=== PATIENT | female | born 1965 | race Caucasian/White ===

== ENCOUNTER → 2017-12-14 15:59 | Outpatient (CLI) | payer MEDICARE, SELFPAY ==
[2017-12-14 16:20] LABS: Abs Immature Grans 0.02 k/cumm (0.0-0.09); HCT 42.8 % (36.0-46.0); Mean Corp. HGB Concentration 32.7 g/dL (32.0-36.0); Mean Corpuscular Hemoglobin 24.7 pg (27.0-33.0); Mean Corpuscular Volume 75.5 fL (80-95); Mean Platelet Volume 9.7 fL (8.0-11.0); Platelet Count 466 x1000/uL (130-400); RBC 5.67 m/cumm (4.00-5.20); RBC Distribution Width 15.1 % (11.7-14.6); White Blood Cell Count 7.26 k/cumm (4.4-10.8)
[2017-12-14 16:50] LABS: Absolute Lymphocyte Count 1.82 k/cumm (1.2-3.4); Absolute Monocyte Count 0.58 k/cumm (0.11-0.7); Absolute Neutrophil Count 4.86 k/cumm (1.2-6.7); Atypical Lymphocytes % 3
[2017-12-14 16:51] LABS: Diff Comment Manual Differential; RBC Morphology Normal
[2017-12-14 17:30] LABS: ALT 20 U/L (12-78); AST 21 U/L (15-37); Albumin 3.3 g/dL (3.4-5.0); Alkaline Phosphatase 110 U/L (46-116); BUN 22 mg/dL (7-18); Bilirubin, Total 0.5 mg/dL (0.2-1.0); CREATININE 1.18 mg/dL (0.55-1.02); Chloride 101 mmol/L (98-107); Estimated GFR 48.29 (mL/min/1.73m2); Glucose 94 mg/dL (70-100); Potassium 4.2 mmol/L (3.5-5.1); Sodium 138 mmol/L (136-145); TSH (W/Ref FT4) 1.86 uIU/mL (0.358-3.74); Total Protein 7.8 g/dL (6.4-8.2)
== END ==
PROVIDERS: PCP Nurse Practitioner Family; Visit Provider Nurse Practitioner Family
DX: R06.02 Shortness of breath (principal); R53.83 Other fatigue
CPT/HCPCS: 36415; 80053; 84443; 85025

== ENCOUNTER → 2017-12-20 00:46 | Outpatient (CLI) | payer MEDICARE, SELFPAY ==
--- NOTE | 2017-12-20 08:20 | DI.REPORT_ITS ---
SYMPTOMS/DIAGNOSIS: SHORTNESS OF BREATH, R06.02, ? CARDIOPULMONARY PROCESS, CROHN'S DISEASE, FATIGUE, R53.83 PA AND LATERAL CHEST: There is a marked biconvex thoracolumbar scoliosis. The heart is not enlarged. The lungs are clear. No pleural effusion seen. CONCLUSION: No evidence of acute disease.
== END ==
PROVIDERS: PCP Nurse Practitioner Family; Visit Provider Nurse Practitioner Family
DX: R06.02 Shortness of breath (principal); R53.83 Other fatigue; K50.90 Crohn's disease, unspecified, without complications
CPT/HCPCS: 71046

== ENCOUNTER 2018-01-18 19:29 | Inpatient (IN) | payer MEDICARE, SELFPAY ==
[2018-01-18 19:34] VITALS: BP 143/87; PULSE 91; RESP 16; TEMP 36.6; O2SAT 97
--- NOTE | 2018-01-18 19:43 | DI.CT_ITS ---
SYMPTOM/DIAGNOSIS: ABD PAIN, VOMITING, H/O CROHNS DISEASE ABDOMEN AND PELVIC CT: CT scan of the abdomen and pelvis was performed following oral and intravenous contrast material. Comparison is made with 12/11/15. The visualized lung bases are clear. The liver is normal in size. No evidence of a hepatic mass. There is mild intrahepatic biliary ductal dilatation. There are stones seen within the gallbladder. The portal and superior mesenteric veins are patent. The pancreas, spleen, adrenal glands, kidneys and urinary bladder are unremarkable. The abdominal aorta is of normal caliber. No aneurysmal dilatation is seen. No significant abdominal or pelvic ascites or pneumoperitoneum is present. There are borderline enlarged lymph nodes seen in the mesentery. The patient is status post colectomy. There is an ostomy in the left lower quadrant. There appears to be a small bowel obstruction with a transition point seen in the right lower quadrant. There does appear to be mild thickening of the wall of the small bowel at the transition point. No mass is appreciated. There is a trace amount of free fluid in the pelvis. There is a marked right convex thoracolumbar scoliosis. No acute fracture is seen. IMPRESSION: Findings consistent with a small bowel obstruction with the zone of transition noted in the right lower quadrant.
--- NOTE | 2018-01-18 19:43 | W.ED.GENAD ---
Discharge Plan Disposition Patient Disposition: [facility] INPATIENT Condition: Poor Discharge Details Chief Complaint: Abd Prob Clinical Impression: Crohn's disease, SBO (small bowel obstruction) Primary Care Provider: Nyasia Amaral ED Provider: Kelvin Mccall [place] Meds and New Rx's Prescriptions: No Action cyanocobalamin (vitamin B-12) 1,000 MCG/1 ML solution 1,000 mcg IJ ONCE Qty: 1 RF: 12 betamethasone valerate 60 ML lotion 1 applic Topical BID RF: 0 calcium carbonate-vitamin D3 1 EACH tablet 1 ea PO RF: 0 acetaminophen 500 MG tablet 2 PO Q6H PRN Qty: 500 RF: 3 ustekinumab [Stelara] 90 MG/1 ML syringe 90 mg SQ q8W RF: 0 clobetasol 50 ML solution 1 applic Topical BID RF: 0 loratadine 10 MG tablet 10 mg PO DAILY Qty: 90 RF: 0 Medical Decision Making <Nick Guzman MD - Last Filed: 01/18/18 19:52> MDM Narrative Medical decision making narrative: 52 yo female who has a hx or crohn's and has an ostomy in place, comes in with abdominal pain shortly after she started eating lunch earlier. Developed nausea and one episode of vomit around 6pm tonight. She has rlq and mid abdominal pain on exam. given her history will obtain lab work to eval for pancreatitis, hepatitis and ct to eval for entities such as sbo vs appendicitis pt signed out to Dr. Mccall pending lab and imaging Differential Diagnosis sbo, colitis, appendicits HPI <Nick Guzman MD - Last Filed: 01/18/18 19:52> General Mode of arrival: ambulatory. Date/Time Provider Initiated Documentation: 01/18/18 19:41. Limitations to Documentation: no limitations. Information obtained by: patient. History of Present Illness 52 year old F presents to the emergency department with the chief complaint of abdominal pain, described as moderate, with intensity rated at 5. Quality is described as stabbing and aching, and is localized to the abdomen. Patient reports no radiation. Patient started experiencing this hour(s) (8) and it has been other (worsening). No relieving factors improve symptom(s), No exacerbating factors reported . Patient notes nausea/vomiting. Patient did receive the following treatments prior to arrival, none Related Data Home Medications Medication Instructions Recorded Confirmed cyanocobalamin (vitamin B-12) 1,000 mcg IJ ONCE #1 vial 08/16/12 01/18/18 acetaminophen 2 PO Q6H PRN #500 tab 03/07/16 betamethasone valerate 1 applic TOPICAL BID script 03/07/16 calcium carbonate-vitamin D3 1 ea PO 03/07/16 ustekinumab [Stelara] 90 mg SQ q8W 06/10/16 01/18/18 clobetasol 1 applic TOPICAL BID script 08/05/16 01/18/18 Previous Rx's Medication Instructions Recorded loratadine 10 mg PO DAILY #90 tab-cap 12/27/17 Allergies Allergy/AdvReac Type Severity Reaction Status Date / Time Sulfa (Sulfonamide Allergy Mild MOUTH SORES Unverified 01/18/18 19:38 Antibiotics) vancomycin AdvReac Mild Unverified 01/18/18 19:38 General Stated Complaint: Abd Prob JOSE: 3 Review of Systems <Nick Guzman MD - Last Filed: 01/18/18 19:52> Review of Systems All systems reviewed & are unremarkable except as noted in HPI and below Constitutional Denies chills, Denies fever(s) and Denies weakness Eyes Patient Denies loss of vision ENT Denies change in voice Cardiovascular Denies chest pain and Denies dyspnea Respiratory Denies dyspnea Gastrointestinal Reports abdominal pain and Reports vomiting Genitourinary Denies dysuria Musculoskeletal Denies joint swelling Integumentary/Breasts Denies rash Neurologic Denies loss of vision and Denies weakness Psychiatric Denies depression Endocrine Denies cold intolerance and Denies heat intolerance Allergic/Immunologic Reports urticaria Exam <Nick Guzman MD - Last Filed: 01/18/18 19:52> Const General: no acute distress Orientation: alert [facility] Head: normal to inspection Ears: external ears normal General nose exam: external nose normal Mouth: moist mucous membranes Eyes General: appearance normal, both eyes and all related structures Neck Neck: normal visual inspection Resp Effort & Inspection: normal respiratory effort and able to speak in complete sentences Cardio Rate: regular rate GI Inspection: other (soft nondistended with rlq and mid abdominal tenderness, no guarding or rebound, ostomy in right sided of abdomen with brown stool in place) Skin General skin exam: no rashes or lesions noted Neuro General: alert and oriented x3 Extrem General: normal to inspection Psych Mental Status: mental status grossly normal Course <Nikc Guzman MD - Last Filed: 01/18/18 19:52> Vital Signs Temperature 36.6 C 01/18/18 19:34 Pulse 91 H 01/18/18 19:34 Respiratory Rate 16 01/18/18 19:34 Blood Pressure 143/87 H 01/18/18 19:34 Pulse Oximetry 97 01/18/18 19:34 Temperature 36.6 C 01/18/18 19:34 Pulse 91 H 01/18/18 19:34 Respiratory Rate 16 01/18/18 19:34 Blood Pressure 143/87 H 01/18/18 19:34 Pulse Oximetry 97 01/18/18 19:34 Sign Out <Nick Guzman MD - Last Filed: 01/18/18 19:52> Sign Out Data: Sign Out Comment: follow up on lab work and ct abd/pelvis results results Last updated by Nick Guzman MD at 01/18/18 19:52 Post-Handoff Eval: Patient signed out to me pending laboratory studies and CT scan. She had presented with abdominal pain, nausea, vomiting. She has a history of Crohn's status post colectomy with an ostomy in the left abdomen. Laboratory studies for the most part are unremarkable with no significant abnormalities. CT scan shows a small bowel obstruction with a transition point in the right lower quadrant. Patient has had multiple episodes of emesis. She has received Zofran and Phenergan. At this point emesis seems to be under control but given her bowel obstruction and the multiple episodes of vomiting I am going to place an NG tube which she is aware of. Patient will be kept n.p.o. She has switched over to D5 LR. Case is discussed with surgery, Dr. Jesus. Patient will be admitted to the surgical service for further management.
--- NOTE | 2018-01-18 19:52 | ED.GENADUL_ITS ---
Discharge Plan Disposition Patient Disposition: [facility] INPATIENT Condition: Poor Discharge Details Chief Complaint: Abd Prob Clinical Impression: Crohn's disease, SBO (small bowel obstruction) Primary Care Provider: Nyasia Amaral ED Provider: Kelvin Mccall [place] Meds and New Rx's Prescriptions: No Action cyanocobalamin (vitamin B-12) 1,000 MCG/1 ML solution 1,000 mcg IJ ONCE Qty: 1 RF: 12 betamethasone valerate 60 ML lotion 1 applic Topical BID RF: 0 calcium carbonate-vitamin D3 1 EACH tablet 1 ea PO RF: 0 acetaminophen 500 MG tablet 2 PO Q6H PRN Qty: 500 RF: 3 ustekinumab [Stelara] 90 MG/1 ML syringe 90 mg SQ q8W RF: 0 clobetasol 50 ML solution 1 applic Topical BID RF: 0 loratadine 10 MG tablet 10 mg PO DAILY Qty: 90 RF: 0 Medical Decision Making <Nick Guzman MD - Last Filed: 01/18/18 19:52> MDM Narrative Medical decision making narrative: 52 yo female who has a hx or crohn's and has an ostomy in place, comes in with abdominal pain shortly after she started eating lunch earlier. Developed nausea and one episode of vomit around 6pm tonight. She has rlq and mid abdominal pain on exam. given her history will obtain lab work to eval for pancreatitis, hepatitis and ct to eval for entities such as sbo vs appendicitis pt signed out to Dr. Mccall pending lab and imaging Differential Diagnosis sbo, colitis, appendicits HPI <Nick Guzman MD - Last Filed: 01/18/18 19:52> General Mode of arrival: ambulatory . Date/Time Provider Initiated Documentation: 01/18/18 19:41 . Limitations to Documentation: no limitations . Information obtained by: patient . History of Present Illness 52 year old F presents to the emergency department with the chief complaint of abdominal pain, described as moderate, with intensity rated at 5. Quality is described as stabbing and aching, and is localized to the abdomen. Patient reports no radiation. Patient started experiencing this hour(s) (8) and it has been other (worsening). No relieving factors improve symptom(s), No exacerbating factors reported . Patient notes nausea/vomiting. Patient did receive the following treatments prior to arrival, none Related Data Home Medications Medication Instructions Recorded Confirmed cyanocobalamin (vitamin B-12) 1,000 mcg IJ ONCE #1 vial 08/16/12 01/18/18 acetaminophen 2 PO Q6H PRN #500 tab 03/07/16 betamethasone valerate 1 applic TOPICAL BID script 03/07/16 calcium carbonate-vitamin D3 1 ea PO 03/07/16 ustekinumab [Stelara] 90 mg SQ q8W 06/10/16 01/18/18 clobetasol 1 applic TOPICAL BID script 08/05/16 01/18/18 Previous Rx's Medication Instructions Recorded loratadine 10 mg PO DAILY #90 tab-cap 12/27/17 Allergies Allergy/AdvReac Type Severity Reaction Status Date / Time Sulfa (Sulfonamide Allergy Mild MOUTH SORES Unverified 01/18/18 19:38 Antibiotics) vancomycin AdvReac Mild Unverified 01/18/18 19:38 General Stated Complaint: Abd Prob JOSE: 3 Review of Systems <Nick Guzman MD - Last Filed: 01/18/18 19:52> Review of Systems All systems reviewed & are unremarkable except as noted in HPI and below Constitutional Denies chills, Denies fever(s) and Denies weakness Eyes Patient Denies loss of vision ENT Denies change in voice Cardiovascular Denies chest pain and Denies dyspnea Respiratory Denies dyspnea Gastrointestinal Reports abdominal pain and Reports vomiting Genitourinary Denies dysuria Musculoskeletal Denies joint swelling Integumentary/Breasts Denies rash Neurologic Denies loss of vision and Denies weakness Psychiatric Denies depression Endocrine Denies cold intolerance and Denies heat intolerance Allergic/Immunologic Reports urticaria Exam <Nick Guzman MD - Last Filed: 01/18/18 19:52> Const General: no acute distress Orientation: alert [facility] Head: normal to inspection Ears: external ears normal General nose exam: external nose normal Mouth: moist mucous membranes Eyes General: appearance normal, both eyes and all related structures Neck Neck: normal visual inspection Resp Effort & Inspection: normal respiratory effort and able to speak in complete sentences Cardio Rate: regular rate GI Inspection: other (soft nondistended with rlq and mid abdominal tenderness, no guarding or rebound, ostomy in right sided of abdomen with brown stool in place) Skin General skin exam: no rashes or lesions noted Neuro General: alert and oriented x3 Extrem General: normal to inspection Psych Mental Status: mental status grossly normal Course <Nick Guzman MD - Last Filed: 01/18/18 19:52> Vital Signs Temperature 36.6 C 01/18/18 19:34 Pulse 91 H 01/18/18 19:34 Respiratory Rate 16 01/18/18 19:34 Blood Pressure 143/87 H 01/18/18 19:34 Pulse Oximetry 97 01/18/18 19:34 Temperature 36.6 C 01/18/18 19:34 Pulse 91 H 01/18/18 19:34 Respiratory Rate 16 01/18/18 19:34 Blood Pressure 143/87 H 01/18/18 19:34 Pulse Oximetry 97 01/18/18 19:34 Sign Out <Nick Guzman MD - Last Filed: 01/18/18 19:52> Sign Out Data: Sign Out Comment: follow up on lab work and ct abd/pelvis results results Last updated by Nick Guzman MD at 01/18/18 19:52 Post-Handoff Eval: Patient signed out to me pending laboratory studies and CT scan. She had presented with abdominal pain, nausea, vomiting. She has a history of Crohn's status post colectomy with an ostomy in the left abdomen. Laboratory studies for the most part are unremarkable with no significant abnormalities. CT scan shows a small bowel obstruction with a transition point in the right lower quadrant. Patient has had multiple episodes of emesis. She has received Zofran and Phenergan. At this point emesis seems to be under control but given her bowel obstruction and the multiple episodes of vomiting I am going to place an NG tube which she is aware of. Patient will be kept n.p.o. She has switched over to D5 LR. Case is discussed with surgery, Dr. Jesus. Patient will be admitted to the surgical service for further management.
[2018-01-18] MEDS: Ondansetron 4 MG/2 ML VIAL IVP (20:04)
[2018-01-18] MEDS: Normal Saline 1,000 ML 1000 ML IV (20:04)
[2018-01-18] MEDS: HYDROmorphone 2 MG/ML VIAL 1 MG IVP ×3 (20:06→23:27)
[2018-01-18 20:20] LABS: Abs Immature Grans 0.02 k/cumm (0.0-0.09); Absolute Basophil Count 0.02 k/cumm (0.0-0.2); Absolute Eosinophil Count 0.06 k/cumm (0.0-0.7); Absolute Neutrophil Count 8.65 k/cumm (1.2-6.7); Basophils % 0.2; Eosinophils % 0.6; HCT 39.2 % (36.0-46.0); HGB 12.9 g/dL (12.0-15.5); Immature Grans % 0.2; Mean Corp. HGB Concentration 32.9 g/dL (32.0-36.0); Mean Corpuscular Hemoglobin 25.3 pg (27.0-33.0); Mean Platelet Volume 9.8 fL (8.0-11.0); Platelet Count 366 x1000/uL (130-400); RBC 5.09 m/cumm (4.00-5.20); White Blood Cell Count 9.95 k/cumm (4.4-10.8)
[2018-01-18 20:33] LABS: ALT 17 U/L (12-78); AST 19 U/L (15-37); Albumin 3.1 g/dL (3.4-5.0); Alkaline Phosphatase 102 U/L (46-116); Anion Gap 11.9 mmol/L (3-11); BUN 13 mg/dL (7-18); Bilirubin, Total 0.9 mg/dL (0.2-1.0); CO2 24.1 mmol/L (21.0-32.0); CREATININE 0.98 mg/dL (0.55-1.02); Calcium 8.9 mg/dL (8.5-10.1); Chloride 102 mmol/L (98-107); Estimated GFR 59.83 (mL/min/1.73m2); Glucose 115 mg/dL (70-100); Lipase 193 U/L (73-393); Potassium 3.7 mmol/L (3.5-5.1); Sodium 138 mmol/L (136-145); Total Protein 7.5 g/dL (6.4-8.2)
[2018-01-18 20:59] VITALS: BP 112/71; PULSE 81; RESP 16; O2SAT 99
[2018-01-18] MEDS: Normal Saline Flush 10 ML SYR IVP ×2 (21:24→22:20)
[2018-01-18] MEDS: Omnipaque 350 MG/ML 100 ML BTL IJ (22:00)
--- NOTE | 2018-01-18 22:35 | DI.VRAD_ITS ---
EXAM: CT Abdomen and Pelvis With Intravenous Contrast EXAM DATE/TIME: 01/18/2018 7:45 PM CLINICAL HISTORY: 52 years old, female; Signs and symptoms; Nausea and vomiting and other: Abd pain; Patient HX: HX of crohn's disease TECHNIQUE: Axial computed tomography images of the abdomen and pelvis with intravenous contrast. All CT scans at this facility use at least one of these dose optimization techniques: automated exposure control; mA and/or kV adjustment per patient size (includes targeted exams where dose is matched to clinical indication); or iterative reconstruction. Coronal and sagittal reformatted images were created and reviewed. CONTRAST: 72 ml of OMNIPAQUE 350 administered intravenously. COMPARISON: CT ABD PELVIS WO CONTRAST 12/11/2015 2:35 PM FINDINGS: Lower thorax: No acute findings. ABDOMEN: Liver: Normal. No mass. Gallbladder and bile ducts: Mild intrahepatic biliary dilatation is present. Cholelithiasis is present with otherwise normal-appearing gallbladder. Pancreas: Normal. No ductal dilation. Spleen: Normal. No splenomegaly. Adrenals: Normal. No mass. Kidneys and ureters: Normal. No hydronephrosis. Stomach and bowel: Status post colectomy with left diverting ostomy. Small bowel loops are dilated in the abdomen and pelvis with zone of transition seen in the right lower quadrant from dilated to decompressed. PELVIS: Bladder: Unremarkable as visualized. Reproductive: Unremarkable as visualized. ABDOMEN and PELVIS: Intraperitoneal space: Normal. No free air. No significant fluid collection. Bones/joints: There is severe thoracolumbar dextroscoliosis. Soft tissues: Unremarkable. Vasculature: Normal. No abdominal aortic aneurysm. Lymph nodes: Borderline enlarged mesenteric lymph nodes are noted. IMPRESSION: Small bowel obstruction with zone of transition in the right lower quadrant. Dictated and Authenticated by: Davin De La Torre MD. Ordering:EDOUARD TRAYLOR MD
[2018-01-18 23:57] VITALS: BP 112/71; PULSE 81; RESP 16; O2SAT 99
[2018-01-19 00:03] VITALS: BP 118/72; PULSE 72; RESP 18; TEMP 36.6; O2SAT 92
[2018-01-19] MEDS: Normal Saline Flush 10 ML SYR IVP (00:41)
[2018-01-19] MEDS: DEXTROSE 5%-LACTATED RINGERS 1,000 ML 125 ML IV ×2 (00:42→08:23)
[2018-01-19 01:04] VITALS: BP 118/72; RESP 18; TEMP 36.6; O2SAT 92
[2018-01-19] MEDS: MORPHine 10 MG/ML VIAL 4 MG IV (03:02)
--- NOTE | 2018-01-19 07:45 | HPE_ITS ---
Date of service: 01/19/18 Time of Service: 06:30 Assessment and Plan (1) Small bowel obstruction due to adhesions: Current visit: Yes Status: Acute A\\Ms. Magallanes is a 52-year-old female who comes in with a small bowel obstruction. She has a known stricture close to her ostomy site. Her last endoscopy was in March. She has air and some liquid stool within the ostomy bag this morning. P\\we will clamp her NG tube today for 4 hours and check residuals if the residuals are less than 100 cc then we will remove the NG tube and start her on some sips of clears. I will discuss the case with Dr. Rider as he is the physician driver lifter of sanitation truck for the weekend. The plan was discussed with the patient and she is in agreement. History of Present Illness Narrative: Ms. Magallanes is a pleasant 52-year-old female with a history of Crohn's disease and several abdominal surgeries, who was seen in the hospital last night for abdominal pain nausea and vomiting. Patient tells me that there is a known stricture close to her ostomy. She had lunch yesterday which included some raw carrots and a couple of hours later she started to have abdominal pain nausea and eventually some vomiting. She has had small bowel obstructions in the past and knew that she most likely had another one. A CT scan was done in the emergency department which showed a small bowel obstruction with the transition zone. This morning she is feeling better her pain is almost gone and she has noted some air and liquid stool in her ostomy bag. Her NG tube is in place at this time. Review of Systems Constitutional Reports system reviewed and no additional complaints, except as docu Cardiovascular Denies chest pain, Denies chest pain at rest, Denies chest pain with activity, Denies dyspnea and Denies dyspnea on exertion Respiratory Denies cough, Denies dyspnea and Denies dyspnea on exertion Gastrointestinal Reports as per HPI Endocrine Reports system reviewed and no additional complaints, except as docu Hematologic/Lymphatic Reports system reviewed and no additional complaints, except as docu PFS Medical History Calcium oxalate renal stones Crohns disease Vitamin B deficiency Social History Smoking/Tobacco Use Status: Never Surgical History R renal percutaneous nephorstomy with stent (03/03/16) cryotherapy (09/07/16) s/p IR drainage of small abscess/ileostomy translocation small bowel resection,abscess drainage,ileostomy translocation 11/05/07 total proctocolectomy 1995 Meds Home Medications Medication Instructions Recorded Confirmed Type cyanocobalamin (vitamin B-12) 1,000 mcg IJ ONCE #1 vial 08/16/12 01/18/18 History acetaminophen 2 PO Q6H PRN #500 tab 03/07/16 History betamethasone valerate 1 applic TOPICAL BID script 03/07/16 History calcium carbonate-vitamin D3 1 ea PO 03/07/16 History ustekinumab [Stelara] 90 mg SQ q8W 06/10/16 01/18/18 History clobetasol 1 applic TOPICAL BID script 08/05/16 01/18/18 History Allergies Allergy/AdvReac Type Severity Reaction Status Date / Time Sulfa (Sulfonamide Allergy Mild MOUTH SORES Unverified 01/18/18 19:38 Antibiotics) vancomycin AdvReac Mild Unverified 01/18/18 19:38 Exam Const General: comfortable and no acute distress Resp Effort & Inspection: normal respiratory effort Auscultation: clear to auscultation bilaterally Cardio Rate: regular rate Rhythm: regular rhythm Heart Sounds: no gallops, no murmurs and no rubs GI Inspection: scar (multiple scars noted) and other (NG in place) Palpation: soft Auscultation: hypoactive bowel sounds and other (ostomy in the LLQ. Air and liquid stool noted in the ostomy bag) Results Labs : 01/18/18 20:00 01/18/18 20:00 Laboratory Results - last 24 hr 01/18/18 01/18/18 01/18/18 19:43 20:00 20:00 WBC 9.95 RBC 5.09 Hgb 12.9 Hct 39.2 MCV 77.0 L MCH 25.3 L MCHC 32.9 RDW 16.0 H Plt Count 366 MPV 9.8 Immature Gran % 0.2 Neutrophils % 87.0 Lymphocytes % 6.0 Monocytes % 6.0 Eosinophils % 0.6 Basophils % 0.2 Absolute Neutrophils 8.65 H Absolute Lymphocytes 0.60 L Absolute Monocytes 0.60 Absolute Eosinophils 0.06 Absolute Basophils 0.02 PT Cancelled INR Cancelled Sodium 138 Potassium 3.7 Chloride 102 Carbon Dioxide 24.1 Anion Gap 11.9 H BUN 13 Creatinine 0.98 Estimated GFR/1.73 m2 59.83 Glucose 115 H Calcium 8.9 Total Bilirubin 0.9 AST 19 ALT 17 Alkaline Phosphatase 102 Total Protein 7.5 Albumin 3.1 L Lipase 193
[2018-01-19 09:04] VITALS: BP 122/78; PULSE 89; RESP 18; TEMP 37.2; O2SAT 98
[2018-01-19 11:04] VITALS: BP 98/61; PULSE 86; RESP 17; TEMP 37.3; O2SAT 97
--- NOTE | 2018-01-19 11:54 | INITIAL_ITS ---
- If Service Date Differs Date of service: 01/19/18 Time of Service: 11:26 Care Management Initial Assess REASON FOR HOSPITALIZATION:: Small bowel obstruction due to adhesions PAST MEDICAL HISTORY/PAST SURGICAL HISTORY:: Calcium oxalate renal stones, Crohns disease, Vitamin B deficiency, (R) renal percutaneous nephrostomy with stent, Cryotherapy, S/P IR drainage of small abscess/ileostomy translocation, Total proctocolectomy PREVIOUS FUNCTIONAL STATUS/SOCIAL/FAMILY SUPPORTS:: Natalee resides alone in [facility], she states that she has family and friends locally whom are very supportive. 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 She states that Dr. Jesus met with her this morning and stated that she may be able to remove the NG tube. Natalee stated that if there was a chance that it would need to be reinstered she would rather have it remain in. ADVANCE DIRECTIVES:: On file - Migdalia Reveles is agent, Celine Tenorio is alternate Has patient been provided with information about the portal?: Yes Did the patient sign up for the portal?: No CODE STATUS:: Full Code INSURANCE COVERAGE / FINANCIAL ISSUES:: Medicare CURRENT HOME/COMMUNITY SERVICES/EQUIPMENT:: Currently Natalee has no services or medical equipment in the community. PRIMARY CARE PHYSICIAN:: Nyasia Amaral POTENTIAL DISCHARGE NEEDS:: F/U appointment with PCP PATIENT/FAMILY EDUCATION NEEDS:: Review DC instructions, any limitations, and ongoing DC planning discussion. review Ask Me Three ANTICIPATED BARRIERS TO DISCHARGE:: None identified at this time. TRANSPORTATION:: Via private vehicle with friend/family PLAN:: Natalee will return home with no anticipated services. She will F/U with PCP and plan of care as prescribed. Natalee will transport home via private vehicle.
--- NOTE | 2018-01-19 13:53 | PHARADMIT ---
Admission Pharmacy Clinical Review SMALL BOWEL OBSTRUCTION, CROHNS DISEASE Code Status Full Code Current Weight 56.699 kg Renally Cleared and Narrow Therapeutic Index Meds CRCL ~61ML/MIN QTc Value / Action Taken BP Control, Fever 98/61 AFEBRILE Electrolytes reviewed OK DVT Prophylaxis NO Opiate Usage / Scheduled Bowel Regimen Ordered NO/NO Plt/SCr for Heparin / Enoxaparin 366/0.98 INR for Warfarin NA H/H stable, WBC/Bands 12.9/39.2 WBC 9.95 Antibiotic appropriateness NA Cultures and Sensitivities NA Surgical ABX d/c within 24 hr NA DM control / Insulin Dosing NA Heart Failure (Check EF%) (AUBREE's, B-Block, Diuretics) NA IV to PO Switch NPO Home Meds Reviewed Home Meds Not Ordered cyanocobalamin (vitamin B-12) 1,000 mcg IJ ONCE #1 vial 08/16/12 acetaminophen 2 PO Q6H PRN #500 tab 03/07/16 [History] betamethasone valerate 1 applic TOPICAL BID script 03/07/16 [History] calcium carbonate-vitamin D3 1 ea PO 03/07/16 [History] ustekinumab [Stelara] 90 mg SQ q8W 06/10/16 [History Confirmed 01/18/18] clobetasol 1 applic TOPICAL BID script 08/05/16 [History Confirmed 01/18/18] loratadine 10 mg PO DAILY #90 tab-cap 12/27/17 [Rx Confirmed 01/18/18] Comments
--- NOTE | 2018-01-19 15:01 | PDOC.CMDIS ---
- If Service Date Differs Date of service: 01/19/18 Time of Service: 15:01 LACE Index Scoring Tool - Questions: Length of Stay (in days): 2 Acuity (Admit via E.D.?): Yes E.D. Visits: 1 - Answers: Total Score: 6 Risk of Readmission: Low Risk Care Management Discharge Reason for Hospitalization: Small bowel obstruction due to adhesions Discharge Plan: Natalee will return home today with no anticipated services. She will F/U with PCP and plan of care as prescribed. Natalee's family will transport home. Patient/Family Education Needs: Review DC instructions, any limitations, and discuss Ask Me Three
--- NOTE | 2018-01-19 15:59 | W.PM.DS.N ---
Date of service: 01/19/18 Time of Service: 15:59 DS: Diagnosis Discharge Diagnosis (1) Small bowel obstruction due to adhesions: Status: Acute Discharge Plan Disposition Patient Disposition: HOME Condition: Improving Discharge Details Reason For Visit: SMALL BOWEL OBSTRUCTION, CROHN'S DISEASE Admit Date/Time: 01/18/18 23:05 Admit Provider: Mari Jesus Attending Provider: Mari Jesus Primary Care Provider: [facility] Hospital Course: Procedures: [None] HPI: Ms. Magallanes is a pleasant 52-year-old female with a history of Crohn's disease and several abdominal surgeries, who was seen in the hospital last night for abdominal pain nausea and vomiting. Patient tells me that there is a known stricture close to her ostomy. She had lunch yesterday which included some raw carrots and a couple of hours later she started to have abdominal pain nausea and eventually some vomiting. She has had small bowel obstructions in the past and knew that she most likely had another one. A CT scan was done in the emergency department which showed a small bowel obstruction with the transition zone. This morning she is feeling better her pain is almost gone and she has noted some air and liquid stool in her ostomy bag. Her NG tube is in place at this time. Hospital Course: 52-year-old female who was admitted for small bowel obstruction with a history of Crohn's disease. She had a subtotal colectomy in the past for which she has a ileostomy. She had an NG tube placed at admission, and her NG tube was clamped this morning. It was removed when the check of the residual showed a scant amount of fluid in her stomach. Her diet was then advanced from clear liquids to digestive soft as tolerated. Once she was tolerating a digestive soft diet; she was discharged home. Time of discharge she denied any pain, she was afebrile, her ostomy was functioning again with gas and stool in the bag, and she was ambulating without difficulty. Home Meds and New Rx's Prescriptions: Continue cyanocobalamin (vitamin B-12) 1,000 MCG/1 ML solution 1,000 mcg IJ ONCE Qty: 1 RF: 12 betamethasone valerate 60 ML lotion 1 applic Topical BID RF: 0 calcium carbonate-vitamin D3 1 EACH tablet 1 ea PO RF: 0 acetaminophen 500 MG tablet 2 PO Q6H PRN Qty: 500 RF: 3 ustekinumab [Stelara] 90 MG/1 ML syringe 90 mg SQ q8W RF: 0 clobetasol 50 ML solution 1 applic Topical BID RF: 0 loratadine 10 MG tablet 10 mg PO DAILY Qty: 90 RF: 0 Discharge Instructions Instructions: Bowel Obstruction (DC) Care Plan Goals: Home Stand Alone Forms: Nursing Discharge Form Referrals: Nyasia Amraal NP [Primary Care Provider] - (Follow up as needed) Mari Jesus MD [ [facility] STAFF PHYSICIAN] - (Follow up as needed) Activity:: Activity as Tolerated Equipment/Supplies:: No Equipment Needed Discharge Orders Discharge Orders: Discharge Order (Routine); Ordered 01/19/18 Ordered By: Medardo Little DS: Summary Status at Discharge Functional status at discharge: independent ambulation Overall status at discharge: patient is back to baseline Time Spent with Patient Less than 30 minutes Exam Const General: cooperative, comfortable and no acute distress Nutritional Appearance: average body habitus and well nourished Orientation: alert, awake and oriented x3 Resp Effort & Inspection: normal respiratory effort, able to speak in complete sentences, no audible wheezes and not labored Cardio Jugular venous pressure: no JVD Rate: regular rate Rhythm: regular rhythm GI Inspection: normal to inspection, non-distended and other (Gas and stool present in her left lower quadrant ileostomy bag) Palpation: soft, no guarding and nontender Skin General skin exam: no rashes or lesions noted and turgor normal Neuro General: alert, awake, oriented x3, moves all extremities, no focal motor deficits and CN's II-XI intact bilaterally Psych Appearance: well kempt Mental Status: mental status grossly normal Affect: normal affect Judgment: judgment good DS: Data Vitals/I&O Vitals and I&O: Vital Signs Temp 37.3 C 01/19/18 11:04 Pulse 86 01/19/18 11:04 Resp 17 01/19/18 11:04 BP 98/61 L 01/19/18 11:04 Pulse Ox 97 01/19/18 11:04 Intake & Output 01/18/18 01/19/18 01/19/18 18:59 06:59 18:59 Intake Total 1000 / 1000 2093.750 / 2093.750 Output Total 150 / 150 559 / 559 Balance 850 / 850 1534.750 / 1534.750 Weight 56.699 kg Intake: IV 1000 / 1000 1643.750 / 1643.750 Oral 450 / 450 Output: Gastric Drainage 0 / 0 9 / 9 Left Nare 0 / 0 9 / 9 Urine 100 / 100 550 / 550 Stool 50 / 50 Other: Urine Color Yellow Yellow Urine Appearance Clear Cloudy Stool Size Large Stool Characteristics Liquid Liquid Mucoid Brown Voiding Methods Toilet Labs on day of discharge: Labs from last 24 hours 01/18/18 01/18/18 01/18/18 20:00 20:00 19:43 WBC 9.95 RBC 5.09 Hgb 12.9 Hct 39.2 MCV 77.0 L MCH 25.3 L MCHC 32.9 RDW 16.0 H Plt Count 366 MPV 9.8 Immature Gran % 0.2 Neutrophils % 87.0 Lymphocytes % 6.0 Monocytes % 6.0 Eosinophils % 0.6 Basophils % 0.2 Absolute Neutrophils 8.65 H Absolute Lymphocytes 0.60 L Absolute Monocytes 0.60 Absolute Eosinophils 0.06 Absolute Basophils 0.02 PT Cancelled INR Cancelled Sodium 138 Potassium 3.7 Chloride 102 Carbon Dioxide 24.1 Anion Gap 11.9 H BUN 13 Creatinine 0.98 Estimated GFR/1.73 m2 59.83 Glucose 115 H Calcium 8.9 Total Bilirubin 0.9 AST 19 ALT 17 Alkaline Phosphatase 102 Total Protein 7.5 Albumin 3.1 L Lipase 193
[2018-01-19 16:33] VITALS: BP 100/61; PULSE 75; RESP 18; TEMP 37.1; O2SAT 98
== END 2018-01-19 17:04 | disposition home or self-care (01) | DRG 389 ==
LOC: ER 23:34 → MS 01-19 08:24
PROVIDERS: Emergency Medicine; Admitting Provider Surgery; Emergency Provider Emergency Medicine; PCP Nurse Practitioner Family; Visit Provider Surgery
DX: K56.50 Intestinal adhesions [bands], unspecified as to partial versus complete obstruction (principal); K50.90 Crohn's disease, unspecified, without complications; Z93.3 Colostomy status
CPT/HCPCS: 36415; 80053; 81025; 83690; 96361; 96365; 96375; 96376; 99217; 99222; 99236; 99285; 74177; 85025; 85610; J2270; J2405; J3490

== ENCOUNTER 2018-01-24 02:52 | Outpatient (CLI) | payer MEDICARE, SELFPAY ==
[2018-01-24] MEDS: Albuterol HFA 18 GM 200 PUFF INH IH (10:41)
[2018-01-24] MEDS: Inhaler, Assist Device 1 EACH MC (10:41)
--- NOTE | 2018-01-26 15:19 | PFT_ITS ---
DATE OF DICTATION: January 26, 2018 DATE OF SURGERY: January 24, 2018 REQUESTING PROVIDER: Nyasia Amaral N.P. Spirometry shows borderline mild obstructive airways disease with no significant bronchodilator response. It is noteworthy that for both pre and post bronchodilator on flow volume loop testing, there is flattened expiratory loop. This may represent intrathoracic large airway obstruction. Lung volumes show no evidence of restriction. Diffusion capacity mildly reduced even when corrected to alveolar volume. Airways resistance normal. IMPRESSION: Borderline mild obstructive airways disease. It is noteworthy on flow volume loop for both pre and post bronchodilator testing, there is flattened expiratory loop which may signal intrathoracic large airway obstruction. Therefore, clinical correlation is recommended. SEE SCANNED DOCUMENT IN THE EMR FOR DATA AND GRAPHS
== END 2018-01-24 03:12 ==
PROVIDERS: PCP Nurse Practitioner Family; Visit Provider Nurse Practitioner Family
DX: R06.02 Shortness of breath (principal); J98.8 Other specified respiratory disorders
CPT/HCPCS: 94060; 94150; 94726; 94729

== ENCOUNTER 2021-03-30 16:10 | Outpatient (REF) | payer MEDICARE, SELFPAY | END 2021-03-30 16:11 | disposition home or self-care (01) | LOC: LBN 16:10 | PROVIDERS: PCP Nurse Practitioner Family; Visit Provider Nurse Practitioner | DX: N89.8 Other specified noninflammatory disorders of vagina (principal) | CPT/HCPCS: 87480; 87510; 87660 ==

== ENCOUNTER 2021-12-02 16:02 | Outpatient (CLI) | payer MEDICARE, SELFPAY ==
[2021-12-02 16:22] LABS: Abs Immature Grans 0.02 10^3/uL (0.0-0.06); Absolute Basophil Count 0.04 10^3/uL (0.0-0.2); Absolute Eosinophil Count 0.14 10^3/uL (0.0-0.7); Absolute Lymphocyte Count 1.42 10^3/uL (1.2-3.4); Absolute Neutrophil Count 2.81 10^3/uL (1.2-6.7); Basophils % 0.8; Eosinophils % 2.9; HCT 27.8 % (36.0-46.0); HGB 7.9 g/dL (11.2-15.7); Immature Grans % 0.4; Lymphocytes % 29.4; MCH 19.2 pg (27.0-33.0); MCHC 28.4 % (32.0-36.0); MCV 68 fL (80-95); MPV 9.4 fL (8.0-11.0); Monocytes % 8.3; Neutrophils % 58.2; Platelet Count 403 10^3/uL (130-400); RBC 4.12 10^6/uL (3.93-5.22); RDW-SD 40.8 fL; WBC 4.83 10^3/uL (4.4-10.8)
[2021-12-02 16:54] LABS: Diff Comment RBC Morph Reviewed; Microcytosis 2+
[2021-12-02 16:55] LABS: Hypochromasia 1+; Poikilocytes 1+
[2021-12-02 16:59] LABS: ALT 19 U/L (14-59); AST 21 U/L (15-37); Albumin 2.9 g/dL (3.4-5.0); Alkaline Phosphatase 79 U/L (46-116); Anion Gap 9.4 mmol/L (3-11); BUN 14 mg/dL (7-18); Bilirubin, Total 0.9 mg/dL (0.2-1.0); CO2 25.6 mmol/L (21.0-32.0); Calcium 8.4 mg/dL (8.5-10.1); Chloride 105 mmol/L (98-107); Estimated GFR 57.56 (mL/min/1.73m2); Glucose 110 mg/dL (74-106); Potassium 3.6 mmol/L (3.5-5.1); Sodium 140 mmol/L (136-145); Total Protein 6.5 g/dL (6.4-8.2)
[2021-12-02 17:16] LABS: Iron 11 ug/dL (50-170); Total Iron Binding Capacity 420 ug/dL (250-450); Transferrin Sat 3 % (15-50)
[2021-12-02 17:24] LABS: C-Reactive Protein < 0.05 mg/dL (0.0-0.3)
[2021-12-02 20:11] LABS: Ferritin 5 ng/mL (8-252)
== END 2021-12-02 16:03 | disposition home or self-care (01) ==
LOC: LBO 16:05
PROVIDERS: PCP Nurse Practitioner Family; Visit Provider Nurse Practitioner Adult Health
DX: K50.918 Crohn's disease, unspecified, with other complication (principal)
CPT/HCPCS: 36415; 80053; 82728; 83540; 83550; 85025; 86140

== ENCOUNTER 2021-12-16 02:58 | Outpatient (RCR) | payer MEDICARE, SELFPAY ==
[2021-12-10 08:10] VITALS: BP 100/69; PULSE 106; RESP 16; TEMP 36.7; O2SAT 98
[2021-12-10] MEDS: FERUMOXYTOL 510 MG in Normal Saline 50 ML 134 MG IVPB (08:23)
[2021-12-10] MEDS: Normal Saline Flush 10 ML SYR IVP (08:23)
[2021-12-10 08:55] VITALS: BP 106/70; PULSE 91; RESP 16; TEMP 36.1; O2SAT 98
[2021-12-10 09:25] VITALS: BP 107/68; PULSE 87; RESP 16; TEMP 36.6; O2SAT 100
[2021-12-16 13:40] VITALS: BP 137/81; PULSE 77; RESP 18; TEMP 36.6; O2SAT 99
[2021-12-16] MEDS: Normal Saline Flush 10 ML SYR IVP (13:51)
[2021-12-16] MEDS: FERUMOXYTOL 510 MG in Normal Saline 50 ML 134 MG IVPB (14:16)
[2021-12-16 15:20] VITALS: BP 127/80; PULSE 72; RESP 17; TEMP 36.7; O2SAT 100
== END 2021-12-29 23:59 | disposition home or self-care (01) ==
LOC: INF 02:58
PROVIDERS: PCP Nurse Practitioner Family; Visit Provider Family Medicine
DX: D50.9 Iron deficiency anemia, unspecified (principal)
CPT/HCPCS: 96365

== ENCOUNTER 2022-07-21 04:19 | Outpatient (CLI) | payer MEDICARE, SELFPAY ==
[2022-07-21 08:26] LABS: ESR 6 mm/hr (0-30)
[2022-07-21 08:27] LABS: Absolute Basophil Count 0.05 10^3/uL (0.0-0.2); Absolute Eosinophil Count 0.25 10^3/uL (0.0-0.7); Absolute Lymphocyte Count 1.13 10^3/uL (1.2-3.4); Absolute Monocyte Count 0.45 10^3/uL (0.1-0.8); Absolute Neutrophil Count 2.65 10^3/uL (1.2-6.7); Basophils % 1.1; Eosinophils % 5.5; HCT 36.4 % (36.0-46.0); HGB 10.7 g/dL (11.2-15.7); Lymphocytes % 24.9; MCH 21.1 pg (27.0-33.0); MCHC 29.4 % (32.0-36.0); MCV 72 fL (80-95); MPV 9.6 fL (8.0-11.0); Monocytes % 9.9; Neutrophils % 58.6; Platelet Count 361 10^3/uL (130-400); RBC 5.06 10^6/uL (3.93-5.22); RDW 14.8 % (11.7-14.6); RDW-SD 38.3 fL; WBC 4.53 10^3/uL (4.4-10.8)
[2022-07-21 09:02] LABS: Anisocytosis 1+; Diff Comment Diff Reviewed; Hypochromasia 1+; Microcytosis 2+
[2022-07-21 09:09] LABS: Vitamin D 25 Total 9.8 ng/mL (30-100)
[2022-07-21 09:17] LABS: ALT 23 U/L (14-59); AST 21 U/L (15-37); Albumin 3.4 g/dL (3.4-5.0); Alkaline Phosphatase 93 U/L (46-116); Anion Gap 9.5 mmol/L (3-11); BUN 9 mg/dL (7-18); Bilirubin, Total 1.2 mg/dL (0.2-1.0); CO2 23.5 mmol/L (21.0-32.0); CREATININE 1.1 mg/dL (0.55-1.02); Calcium 8.5 mg/dL (8.5-10.1); Chloride 104 mmol/L (98-107); Estimated GFR 58.97 (mL/min/1.73m2); Ferritin 8 ng/mL (8-252); Glucose 95 mg/dL (74-106); Potassium 4.3 mmol/L (3.5-5.1); Sodium 137 mmol/L (136-145); Total Protein 7.1 g/dL (6.4-8.2); Vitamin B12 362 pg/mL (193-986)
[2022-07-21 09:45] LABS: C-Reactive Protein < 0.05 mg/dL (0.0-0.3)
[2022-07-21 10:12] LABS: Iron 23 ug/dL (50-170); Total Iron Binding Capacity 462 ug/dL (250-450); Transferrin Sat 5 % (15-50)
[2022-07-22 16:02] LABS: ANA Interpretation Positive (Negative); ANA Titer Pattern 1:320 Homogeneous
== END 2022-07-21 04:20 | disposition home or self-care (01) ==
LOC: LBO 04:19
PROVIDERS: PCP Nurse Practitioner Family; Visit Provider Internal Medicine Rheumatology
DX: K50.919 Crohn's disease, unspecified, with unspecified complications (principal); L40.9 Psoriasis, unspecified; D50.9 Iron deficiency anemia, unspecified; Z79.899 Other long term (current) drug therapy
CPT/HCPCS: 36415; 80053; 82306; 85652; 82607; 82728; 83540; 83550; 85025; 86038; 86140

== ENCOUNTER 2022-07-25 10:45 | Outpatient (REF) | payer MEDICARE, SELFPAY ==
[2022-07-25 16:13] LABS: COVID-19 PCR Negative (Negative); Influenza A PCR Negative (Negative); Influenza B PCR Negative (Negative); RSV PCR Negative (Negative)
[2022-07-25 16:19] LABS: Source Nasopharynx
== END 2022-07-25 10:46 | disposition home or self-care (01) ==
LOC: LBN 10:45
PROVIDERS: PCP Nurse Practitioner Family; Referring Provider Nurse Practitioner; Visit Provider Nurse Practitioner
DX: J02.9 Acute pharyngitis, unspecified (principal); R50.9 Fever, unspecified; R51.9 Headache, unspecified; Z20.822 Contact with and (suspected) exposure to COVID-19
CPT/HCPCS: 87637

== ENCOUNTER 2022-07-25 13:25 | Outpatient (CLI) | payer MEDICARE, SELFPAY ==
[2022-07-27 14:14] LABS: TB Interpretation Negative (Negative)
== END 2022-07-25 13:26 | disposition home or self-care (01) ==
LOC: LBO 13:29
PROVIDERS: PCP Nurse Practitioner Family; Visit Provider Nurse Practitioner Adult Health
DX: K50.919 Crohn's disease, unspecified, with unspecified complications (principal)
CPT/HCPCS: 36415; 86480

== ENCOUNTER 2022-08-15 01:28 | Outpatient (RCR) | payer MEDICARE, SELFPAY ==
[2022-08-09] MEDS: Normal Saline Flush 10 ML SYR IVP (08:12)
[2022-08-09] MEDS: FERUMOXYTOL 510 MG in Normal Saline 50 ML 134 MG IVPB (08:12)
[2022-08-15 08:14] VITALS: BP 114/76; PULSE 84; RESP 17; TEMP 36.6; O2SAT 99
[2022-08-15] MEDS: Normal Saline Flush 10 ML SYR IVP (08:16)
[2022-08-15] MEDS: FERUMOXYTOL 510 MG in Normal Saline 50 ML 134 MG IVPB (08:16)
== END 2022-08-28 23:59 | disposition home or self-care (01) ==
LOC: INF 01:28
PROVIDERS: PCP Nurse Practitioner Family; Visit Provider Nurse Practitioner Family
DX: D50.9 Iron deficiency anemia, unspecified (principal)
CPT/HCPCS: 96365

== ENCOUNTER 2024-03-06 10:13 | Emergency (ER) | payer MEDICARE, SELFPAY ==
[2024-03-06 10:16] VITALS: BP 111/79; PULSE 82; RESP 16; TEMP 36.4; O2SAT 99
--- NOTE | 2024-03-06 10:30 | DI.CT_ITS ---
Exam(s) CT ABDOMEN PELVIS WO EXAM: CT ABDOMEN PELVIS WO CLINICAL HISTORY: left flank and LLQ pain, hx stones and crohns. TECHNIQUE: Imaging Protocol: Axial computed tomography images with coronal and sagittal reformatted images were created and reviewed. FINDINGS: ABDOMEN: Lung Bases: Normal where visualized. Liver: Normal density. No measurable mass. Gallbladder and biliary tract: There are multiple gallstones present. There is no biliary ductal dil atation. Pancreas: Normal density, no abnormal calcifications or inflammatory process. Spleen: Normal. Kidneys: Normal size, contour and axis.There is a 3 mm left UVJ stone causing mild hydronephrosis. N o masses seen. Adrenal glands: No mass is seen. Lymph nodes: Within normal limits. Abdominal Aorta: Abdominal portion non-dilated. Mild atherosclerotic calcification is present. PELVIS: Bladder:Symmetric distention, no gross wall thickening. Bowel: There again seen findings of a colectomy with a left lower quadrant ostomy. There is no evide nce of bowel obstruction or bowel wall thickening. Peritoneal cavity: No ascites, collection or mesenteric inflammatory response. No free air. Reproductive organs: Unremarkable as visualized. Bones: Within normal limits. There is a right convex thoracolumbar scoliosis. Age-appropriate degene rative changes are seen in the spine. Soft Tissues: Within normal limits. IMPRESSION: 1. 3 mm left UVJ stone causing mild hydronephrosis. 2. Findings were discussed with Dr. Newman on 03/06/2024. RADIATION DOSE DELIVERED: 275.66mGy.cm Total DLP DATA REPOSITORY: All CT scans at this facility are submitted to the National Radiology Data Registry (NRDR) Dose Index Registry (DIR) with the [employer] ([employer]). RADIATION OPTIMIZATION: All CT scans at this facility use at least one of these dose optimization te chniques: automated exposure control; mA and/or kV adjustment per patient size (includes targeted exa ms where dose is matched to clinical indication); or iterative reconstruction.
--- NOTE | 2024-03-06 10:31 | ED.GENADUL_ITS ---
Discharge Plan Disposition Patient Disposition: Home Condition: Improving Discharge Details Clinical Impression: Nephrolithiasis, UTI (urinary tract infection) Primary Care Provider: Nyasia Amaral ED Provider: Ernestina Carvajal Home Meds and New Rx's Prescriptions: New cephalexin 500 mg capsule 500 mg PO BID Qty: 14 0RF tamsulosin [Flomax] 0.4 mg capsule 0.4 mg PO DAILY Qty: 7 0RF Rx Instructions: May stop after passage of stone ketorolac 10 mg tablet 10 mg PO Q6H PRNQty: 8 0RF Rx Instructions: maximum total duration of 5 days from all oral, intranasal, or parenteral formulations Continued ibuprofen 100 mg/5 mL suspension 600 mg PO TID PRN (Reason: inflammation) Qty: 473 1RF acetaminophen 500 mg/15 mL liquid 1,000 mg PO Q8H PRN (Reason: fever or pain) Qty: 237 5RF cyanocobalamin (vitamin B-12) 1,000 mcg/mL solution 1,000 mcg IM .[id number] Qty: 1 [place] [facility] Sodium Bicarbonate 0.5 tsp PO TID Rx Instructions: 0.5 teaspoon per liter fluid adalimumab 40 mg/0.4 mL pen injector kit 40 mg subcut QWEEK Rx Instructions: 04/18/22 Increase to weekly dosing fluocinolone 0.01 % solution 1 applic topical BID PRN Rx Instructions: Apply to the Q-tip and then apply to the affected areas of the ears and scalp twice daily for up to two weeks clobetasol 0.05 % solution See Rx Instructions topical .COMPLEX Rx Instructions: Apply to scaly spots on scalp twice daily for 2 weeks then on weekends as needed topically; diclofenac sodium 1 % gel 2 g topical QID Rx Instructions: Apply 2g to each upper extremity joint up to 4x daily. Do not exceed 32g total body dose per day. [facility] [place]/17/23 Discharge Instructions Instructions: Kidney Stone, Adult ED, Urinary Tract Infection, Adult ED Additional Instructions: As we discussed, imaging shows a small kidney stone on the left side that is in your bladder and likely pass soon. Please continue to filter your urine until you see the stone. If possible, please bring this in for further testing, you may bring this to upcoming urology appointment. You have been referred to urology here. Please call number listed below to schedule follow-up appointment. They would like to see you in the next 1 to 2 weeks. Please continue to encourage hydration, your stress and lack of drinking may have precipitated you having a stone. There is concern that you also have a urinary tract infection but there is no indication to suggest that this infection has spread up to the kidneys so the stone does not need to be removed emergently today. Please take the antibiotics as prescribed. Even if symptoms improve, please take the entire course. If you develop fever/chills, inability stay hydrated, increased pain or other new/worsening symptoms please to care urgently once again. You may use the ketorolac to help with your discomfort as prescribed. This is an anti-inflammatory so please do not take any ibuprofen or Aleve when taking this medication. However, you may augment this with Tylenol. Please also take the Flomax as prescribed as this will allow for the passage of stone. You may stop this medication once you have seen the stone. If you develop any new or worsening symptoms please seek care urgently once again. Referrals: Uriah Verdin MD [ [facility] STAFF PHYSICIAN] - Nyasia Amaral NP [Primary Care Provider] - [facility] Date/Time Provider Initiated Documentation: 03/06/24 10:15 . Limitations to Documentation: no limitations . Information obtained by: patient and RN notes reviewed . History of Present Illness 59 year old F presents to the emergency department with the chief complaint of left side abdominal pain/pelvic pain, described as severe and similar to prior episodes (hx of nephrolithiasis and SBO), Quality is described as aching, and is localized to the abdomen. Patient started experiencing this hour(s) and it has been constant. No relieving factors improve symptom(s), No exacerbating factors reported . Patient notes loss of appetite and nausea/vomiting; denies chest pain, cough, diaphoresis, fever/chills, headaches, malaise, rash, shortness of breath and weakness. Patient did receive the following treatments prior to arrival, none Related Data Home Medications ?Medication ?Instructions ?Recorded ?Confirmed cyanocobalamin (vitamin B-12) 1,000 mcg IM .[id number] #1 vial 04/08/21 03/06/24 1,000 mcg/mL injection solution Sodium Bicarbonate 0.5 tsp PO TID 12/29/21 03/06/24 adalimumab 40 mg/0.4 mL 40 mg subcut QWEEK 04/27/22 03/06/24 subcutaneous pen kit fluocinolone 0.01 % topical 1 applic topical BID PRN 06/01/22 03/06/24 solution ibuprofen 100 mg/5 mL oral 600 mg (30 mL) PO TID PRN 07/29/22 03/06/24 suspension inflammation #473 mL clobetasol 0.05 % scalp solution See Rx Instructions topical 12/14/22 03/06/24 .COMPLEX diclofenac sodium 1 % topical gel 2 g topical QID 01/20/23 03/06/24 acetaminophen 500 mg/15 mL oral 1,000 mg (30 mL) PO Q8H PRN fever 08/28/23 03/06/24 liquid or pain #237 mL cephalexin 500 mg capsule 500 mg PO BID #14 caps 03/06/24 ketorolac 10 mg tablet 10 mg PO Q6H PRN #8 tabs 03/06/24 tamsulosin 0.4 mg capsule (Flomax) 0.4 mg PO DAILY #7 caps 03/06/24 Previous Rx's ?Medication ?Instructions ?Recorded ibuprofen 100 mg/5 mL oral 600 mg (30 mL) PO TID PRN 07/29/22 suspension inflammation #473 mL acetaminophen 500 mg/15 mL oral 1,000 mg (30 mL) PO Q8H PRN fever 08/28/23 liquid or pain #237 mL cephalexin 500 mg capsule 500 mg PO BID #14 caps 03/06/24 ketorolac 10 mg tablet 10 mg PO Q6H PRN #8 tabs 03/06/24 tamsulosin 0.4 mg capsule (Flomax) 0.4 mg PO DAILY #7 caps 03/06/24 Allergies Allergy/AdvReac Type Severity Reaction Status Date / Time Sulfa (Sulfonamide AdvReac Mild MOUTH SORES Verified 03/06/24 10:18 Antibiotics) vancomycin AdvReac Mild red Verified 03/06/24 10:18 neck/back and mild uticaria General Stated Complaint: Abd Prob JOSE: 3 Review of Systems Constitutional Constitutional: Reports as per HPI, Denies chills, Denies fever(s) and Denies headache(s) ENT Ears, Nose, Mouth, and Throat: Denies headache(s) Cardiovascular Cardiovascular: Reports as per HPI, Denies chest pain and Denies dyspnea Respiratory Respiratory: Reports as per HPI, Denies cough and Denies dyspnea Gastrointestinal Gastrointestinal: Reports as per HPI Musculoskeletal Musculoskeletal: Reports as per HPI and Denies back pain Integumentary/Breasts Skin/Breast: Reports as per HPI and Denies rash Neurologic Neurologic: Reports as per HPI and Denies headache(s) Exam Const General: cooperative, healthy appearing, no acute distress and well developed Nutritional Appearance: average body habitus and well nourished Orientation: alert and awake [facility] Head: normal to inspection Mouth: moist mucous membranes Resp Effort & Inspection: normal respiratory effort, able to speak in complete sentences and no respiratory distress Auscultation: clear to auscultation bilaterally, no rales, no rhonchi and no wheezes Cardio Rate: regular rate Rhythm: regular rhythm Heart Sounds: S1 normal and S2 normal GI Inspection: other (LLQ ostomy, appears healthy, soft stool output) Palpation: soft, no hepatosplenomegaly, not firm, no guarding, no masses, no pulsatile masses and tender in the LLQ; with no rebound tenderness Percussion: normal to percussion Auscultation: hypoactive bowel sounds Back/Spine/Pelvis Back: no CVA tenderness Skin General skin exam: no rashes or lesions noted Trauma: no lacerations or abrasions Neuro General: patient alert and patient awake Cognition: normal cognition Speech: speech normal Gait: normal gait Course Vital Signs Vital signs: Vital Signs Temperature 36.4 C 03/06/24 10:16 Pulse 82 03/06/24 10:16 Respiratory Rate 16 03/06/24 10:16 Blood Pressure 111/79 03/06/24 10:16 Pulse Oximetry 99 03/06/24 10:16 Temperature 36.4 C 03/06/24 10:16 Temperature Source Oral 03/06/24 10:16 Pulse 82 03/06/24 10:16 Respiratory Rate 16 03/06/24 10:16 Respiratory Effort Normal, Non-Labored 03/06/24 10:20 Blood Pressure 111/79 03/06/24 10:16 Blood Pressure Position Sitting 03/06/24 10:16 Pulse Oximetry 99 03/06/24 10:16 Oxygen Delivery Method Room Air 03/06/24 10:16 Oxygen Flow Rate 0 03/06/24 10:16 Pain Level 10 03/06/24 10:16 Medical Decision Making Patient is a pleasant 59 vania old female with past medical history significant f or Crohn's, multiple small bowel obstructions, nephrolithiasis with several previous abdominal surgeries, presenting today with chief complaint of left- sided flank/abdominal pain. She reports it has been several years since she had a Crohn's flare with her current regimen. Last that her injectable medication 1 week ago. States that she has had to miss her medications in the past and has done well despite needing to miss a dose. She states that the pain woke her around 4:00 this morning and has been severe since that time. Patient also has history of nephrolithiasis reports that this does feel somewhat similar as the pain can radiate down towards her bladder. She reports that she has been having a decreased urinary output. Has had some nausea and vomiting. Diminished output in her ostomy. No blood noted in emesis, ostomy output or urine. She denies any dysuria. She does report that she has a fullness in her vaginal canal but feels that this is radiating from the stomach. She denies any vaginal discharge, no new sexual partners and reports that she has not been sexually active in many years. Has had some chills but no fevers. She denies any chest pain, shortness of breath. No other symptoms associated with acute illness. On exam, patient appears uncomfortable. She does appear that she is well- hydrated. She is hemodynamically stable. Afebrile. She has healthy appearing ostomy with normal output, nonbloody. Abdomen is tender in the left lower quadrant but does not seem to be point tender. She also has some pain lower directly over the bladder. No CVA tenderness with percussion. Bowel sounds are slightly hypoactive. She is 2+ distal pulses. With patient's multiple surgeries, certainly consider an SBO although she does continue to have good ostomy output. She also does not seem to be tympanitic. No active vomiting. With the severity and sudden onset of her discomfort, considered nephrolithiasis as well. Will move forward first with a Noncon CT scan to evaluate for this. Can add in a CT scan with contrast if needed moving forward. Will give morphine and Zofran to help with symptoms. As the patient has had some emesis, will give 1 bag of IV fluids. Labs reviewed. No leukocytosis. Stable H&H. Creatinine is slightly elevated 1.2 but this does not appear significantly elevated from her baseline. Her T. bili is also elevated to 0.13 which also appears to be baseline for the patient CT scan reviewed by radiologist concerning for a 3 mm stone at the left UVJ which is consistent with the patient's discomfort. Waiting for UA. Patient reports that the pain has come back, she was given a dose of ketorolac and had much better pain relief with this medication over the morphine. UA concerning for possible infection with leukocyte esterase, bacteria. Will obstructing stone, will call urology to discuss. Consulted with Sylvia Trejo, she advised is she can keep down PO, drink fluids, advised abx (keflex), toradol and tamsulosin at home for possible infected stone. Based on size, recommends to try to see if this can pass. She recommends f/u in 1-2 wks in their office. Patient has also [place] [facility] [place] but would prefer to keep her care here if possible at this time. WALLACE Trejo feel that based on patient's labs, hemodynamics, lack of CVA tenderness and overall appearance, does not appear to be septic, unlikely to be bacteremic, feels that outpatient management is appropriate at this time which I agree with. I discussed this plan with the patient. She is significantly improved, much more chatty and mobile. Wondering at this time of the stone may already have passed into her bladder. Will have her continue to strain her urine. We discussed using the antibiotics. Very strict return precautions were discussed. She will call Dr. Verdin's office to schedule follow-up appointment. Will continue with ketorolac as recommended by WALLACE Morton to help with discomfort. All of her questions and concerns were addressed and she is in agreement this plan This documentation was generated using Hypereightation system, please disregard any oddities of phrase or misspellings. 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 (Acute) Both hands Tendinitis of both wrists (Acute) Nephrolithiasis (Chronic) Metatarsalgia of both feet (Acute) per [place]/11/[place] [facility] [place] Arthritis associated with inflammatory bowel disease (Acute) Per 01/27/21 [facility] [place] Primary osteoarthritis involving multiple joints (Acute) Per 01/27/21 [facility] [place] [place] High risk medication use (Acute) Per 01/27/21 [facility] [place] [place] Vitamin B deficiency (Chronic 11/05/12) 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 11/15/18 [place]oscopy [facility] [place] Baltazar) Endoscopy planned for November 2022 Calcium oxalate renal stones (Chronic) [place] [facility] [place] S/p PCNL (R) kidney 03/03/2016 [facility] S/p PCNL (R) kidney 08/2020 [facility] 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 had destruction of filaform wart with cryotherapy on central upper abdomen. 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
[2024-03-06 10:40] LABS: Abs Immature Grans 0.03 10^3/uL (0.0-0.06); Absolute Basophil Count 0.02 10^3/uL (0.0-0.2); Absolute Lymphocyte Count 0.44 10^3/uL (1.2-3.4); Absolute Monocyte Count 0.28 10^3/uL (0.1-0.8); Absolute Neutrophil Count 8.58 10^3/uL (1.2-6.7); Basophils % 0.2 %; HCT 43.4 % (36.0-46.0); HGB 14.3 g/dL (11.2-15.7); Immature Grans % 0.3 %; Lymphocytes % 4.7 %; MCH 28.7 pg (27.0-33.0); MCHC 32.9 % (32.0-36.0); MCV 87 fL (80-95); MPV 9.2 fL (8.0-11.0); Neutrophils % 91.8 %; Platelet Count 238 10^3/uL (130-400); RBC 4.98 10^6/uL (3.93-5.22); RDW 13.3 % (11.7-14.6); RDW-SD 42.7 fL; WBC 9.35 10^3/uL (4.4-10.8)
[2024-03-06] MEDS: MORPHine 10 MG/ML VIAL 4 MG IVP (10:44)
[2024-03-06] MEDS: Ondansetron 4 MG/2 ML VIAL IVP (10:45)
[2024-03-06 10:56] LABS: ALT 18 U/L (14-59); AST 19 U/L (15-37); Albumin 3.5 g/dL (3.4-5.0); Alkaline Phosphatase 89 U/L (46-116); Anion Gap 9.2 mmol/L (3-11); BUN 14 mg/dL (7-18); Bilirubin, Total 2.13 mg/dL (0.2-1.0); CO2 25.8 mmol/L (21.0-32.0); CREATININE 1.2 mg/dL (0.55-1.02); Calcium 9.1 mg/dL (8.5-10.1); Chloride 108 mmol/L (98-107); Estimated GFR 52.47 (mL/min/1.73m2); Glucose 141 mg/dL (74-106); Lipase 31 U/L (16-77); Magnesium 1.9 mg/dL (1.8-2.4); Potassium 4.5 mmol/L (3.5-5.1); Sodium 143 mmol/L (136-145); Total Protein 7.1 g/dL (6.4-8.2)
[2024-03-06] MEDS: Lactated Ringers 1,000 ML 1000 ML IV (11:18)
[2024-03-06 11:30] VITALS: O2SAT 97
[2024-03-06 11:58] VITALS: BP 140/77; PULSE 79; O2SAT 98
[2024-03-06] MEDS: Tamsulosin 0.4 MG CAPCR PO (12:38)
[2024-03-06] MEDS: Ketorolac 15 MG/ML VIAL IVP (12:38)
[2024-03-06 12:41] VITALS: BP 160/86; PULSE 75; O2SAT 99
[2024-03-06 13:42] LABS: Bilirubin Negative (Negative); Blood Trace-lysed (Negative); Clarity Clear (Clear); Glucose Negative (Negative); Ketones Negative (Negative); Leukocyte Esterase Moderate (Negative); Nitrite Negative (Negative); Specific Gravity 1.025 (1.005-1.025); Urobilinogen 0.2 mg/dL (Up to 0.2); pH 5.5 (5-8)
[2024-03-06 13:51] LABS: Bacteria Moderate HPF (Negative); C & S Indicated? Yes; Casts Negative LPF (Negative); Crystals Negative HPF (Negative); Epithelial Cells Few HPF (Negative); Mucus Trace (Negative); Other Cells Negative (Negative); RBC 0-2 HPF (0-2)
[2024-03-06 14:56] VITALS: BP 118/55; PULSE 77
== END 2024-03-06 15:53 | disposition home or self-care (01) ==
PROVIDERS: Emergency Provider Physician Assistant
DX: N13.2 Hydronephrosis with renal and ureteral calculous obstruction (principal); N39.0 Urinary tract infection, site not specified; Z93.3 Colostomy status
CPT/HCPCS: 36415; 80053; 83690; 96361; 96374; 96375; 99284; 74176; 81003; 81015; 83735; 85025; 87086; J1885; J2270; J2405

== ENCOUNTER 2024-08-28 15:34 | Outpatient (REF) | payer MEDICARE, SELFPAY | END 2024-08-28 15:35 | disposition home or self-care (01) | LOC: LBN 15:34 | PROVIDERS: Visit Provider Nurse Practitioner Family | DX: J02.9 Acute pharyngitis, unspecified (principal) | CPT/HCPCS: 87070 ==

== ENCOUNTER → 2024-11-05 08:51 | Outpatient (BNVA) | payer MEDICARE, SELFPAY | PROVIDERS: PCP Family Medicine; Referring Provider Emergency Medicine; Visit Provider Physical Therapy Assistant | DX: D48.5 Neoplasm of uncertain behavior of skin (principal) | CPT/HCPCS: 99203 ==

== ENCOUNTER 2024-11-23 00:31 | Emergency (ER) | payer MEDICARE, SELFPAY ==
[2024-11-23] VITALS (7 sets, daily range): BP systolic 113–129; BP diastolic 72–96; PULSE 70–105; RESP 18; TEMP 36.5; O2SAT 95–97
[2024-11-23 01:16] LABS: Abs Immature Grans 0.02 10^3/uL (0.0-0.06); HCT 50.0 % (36.0-46.0); HGB 16.6 g/dL (11.2-15.7); Immature Grans % 0.3 %; MCH 27.2 pg (27.0-33.0); MCHC 33.2 % (32.0-36.0); MCV 82 fL (80-95); MPV 9.8 fL (8.0-11.0); Platelet Count 309 10^3/uL (130-400); RBC 6.10 10^6/uL (3.93-5.22); RDW 14.0 % (11.7-14.6); RDW-SD 41.2 fL; WBC 6.25 10^3/uL (4.4-10.8)
[2024-11-23] MEDS: Lactated Ringers 1,000 ML 1000 ML IV ×2 (01:27→02:52)
[2024-11-23 01:33] LABS: ALT 24 U/L (14-59); AST 31 U/L (15-37); Albumin 4.1 g/dL (3.4-5.0); Alkaline Phosphatase 117 U/L (46-116); Anion Gap 15.0 mmol/L (3-11); BUN 27 mg/dL (7-18); Bilirubin, Total 2.8 mg/dL (0.2-1.0); CO2 20.0 mmol/L (21.0-32.0); Calcium 9.5 mg/dL (8.5-10.1); Chloride 99 mmol/L (98-107); Estimated GFR 52.47 (mL/min/1.73m2); Glucose 114 mg/dL (74-106); Lipase 39 U/L (<78); Potassium 4.4 mmol/L (3.5-5.1); Sodium 134 mmol/L (136-145); Total Protein 8.8 g/dL (6.4-8.2)
[2024-11-23 01:51] LABS: RBC Morphology Normal
[2024-11-23 02:17] LABS: EPI 027-NAP1-B1 PRESUMPTIVE NEGATIVE
--- NOTE | 2024-11-23 02:52 | W.ED.GENAD ---
Discharge Plan Disposition Patient Disposition: Home Condition: Good Discharge Details Clinical Impression: Acute dehydration, Diarrhea Primary Care Provider: Irving Barkley ED Provider: Jose Newman Home Meds and New Rx's Prescriptions: No Action ibuprofen 100 mg/5 mL suspension 600 mg PO TID PRN (Reason: inflammation) Qty: 473 1RF ergocalciferol (vitamin D2) 1,250 mcg (50,000 unit) capsule PO Patient Comments: TAKE ONE CAPSULE BY MOUTH THREE TIMES A WEEK fluocinonide 0.05 % gel 1 applic topical BID Qty: 15 0RF Rx Instructions: Apply to affected area on R arm, on the lesion only cyanocobalamin (vitamin B-12) 1,000 mcg/mL solution 1,000 mcg IM .[id number] Qty: 1 Patient Comments: [facility] Urology adalimumab 40 mg/0.4 mL pen injector kit 40 mg subcut QWEEK Rx Instructions: 04/18/22 Increase to weekly dosing fluocinolone 0.01 % solution 1 applic topical BID PRN Rx Instructions: Apply to the Q-tip and then apply to the affected areas of the ears and scalp twice daily for up to two weeks clobetasol 0.05 % solution See Rx Instructions topical .COMPLEX Rx Instructions: Apply to scaly spots on scalp twice daily for 2 weeks then on weekends as needed topically; acetaminophen 500 mg/15 mL liquid 1,000 mg PO Q8H PRN (Reason: fever or pain) Qty: 237 5RF Discharge Instructions Instructions: Dehydration, Adult (DC) Additional Instructions: At this time your laboratory workup has returned reassuring. Your C. difficile testing is negative. The culture results for your stool will take a couple days to come back, but you will be contacted if they return abnormal. Please take a probiotic daily, or yogurt with live culture to help improve your current gut health after this diarrhea episode. Please continue to take high-fiber bulking agents, drink plenty of fluids to stay well-hydrated, and monitor your symptoms closely. If you notice any worsening of your symptoms, or any new symptoms such as vomiting, diarrhea, fever, chills, shortness of breath, chest pain, numbness, weakness, or fainting , please return immediately to the emergency department for reevaluation. Please follow up with your primary care provider as soon as possible for reassessment and reevaluation. As always, it was a pleasure participating in your medical care today. Referrals: Irving Barkley DO [Primary Care Provider, Medicine] HPI General Date/Time Provider Initiated Documentation: 11/23/24 00:56. HPI Narrative: 59-year-old female with a past medical history of Crohn's disease, currently on Humira, ileostomy, renal insufficiency, previous ovarian cysts, presents today for evaluation of diarrhea. Patient states that for the last 4 days she has been having mild diarrhea. She denies any recent foreign travel, recent antibiotics, recent drinking out of streams or [place] or lakes. She states that she will occasionally get diarrhea with her Crohn's, but this diarrhea has been notably nonbloody. She denies any significant abdominal pain or vomiting. She has been drinking fluids for rehydration, and also trying to take pasty like foods to help bulk her stools, however despite this she still has green watery diarrhea. She presents today because she feels that she is getting dehydrated, and wants to hydrate prior to having a problem. She denies any other complaints at this time. She is taking Lomotil which she has prescribed already. Related Data Home Medications ?Medication ?Instructions ?Recorded ?Confirmed cyanocobalamin (vitamin B-12) 1,000 mcg IM .[id number] #1 vial 04/08/21 11/23/24 1,000 mcg/mL injection solution adalimumab 40 mg/0.4 mL 40 mg subcut QWEEK 04/27/22 11/23/24 subcutaneous pen kit fluocinolone 0.01 % topical 1 applic topical BID PRN 06/01/22 11/23/24 solution ibuprofen 100 mg/5 mL oral 600 mg (30 mL) PO TID PRN 07/29/22 11/23/24 suspension inflammation #473 mL clobetasol 0.05 % scalp solution See Rx Instructions topical 12/14/22 11/05/24 .COMPLEX ergocalciferol (vitamin D2) 1,250 PO 08/28/24 11/05/24 mcg (50,000 unit) capsule acetaminophen 500 mg/15 mL oral 1,000 mg (30 mL) PO Q8H PRN fever 09/03/24 11/23/24 liquid or pain #237 mL fluocinonide 0.05 % topical gel 1 applic topical BID #15 grams 09/27/24 11/23/24 Previous Rx's ?Medication ?Instructions ?Recorded ibuprofen 100 mg/5 mL oral 600 mg (30 mL) PO TID PRN 07/29/22 suspension inflammation #473 mL acetaminophen 500 mg/15 mL oral 1,000 mg (30 mL) PO Q8H PRN fever 09/03/24 liquid or pain #237 mL fluocinonide 0.05 % topical gel 1 applic topical BID #15 grams 09/27/24 Allergies Allergy/AdvReac Type Severity Reaction Status Date / Time Sulfa (Sulfonamide AdvReac Mild MOUTH SORES Verified 11/23/24 00:50 Antibiotics) vancomycin AdvReac Mild red Verified 11/23/24 00:50 neck/back and mild uticaria General Stated Complaint: Nausea/Vomit/Diar JOSE: 3 Exam Narrative Exam Narrative: 1.Const: Well-nourished, Well-developed, appearing stated age 2.Eyes: PERRL, no conjunctival injection, and symmetrical lids. 3.ENT: Atraumatic external nose and ears. Dry MM. Neck: Symmetric, trachea midline, No thyromegaly. 4.CVS: +S1/S2, Peripheral pulses 2+ and equal in all extremities. Brisk capillary refill in all extremities. 5.RESP: Unlabored respiratory effort. Clear to auscultation bilaterally. No wheezes rales or rhonchi 6.GI: Soft, Nontender/Nondistended, No hepatosplenomegaly. No guarding or rebound. Ostomy site demonstrates a pink ostomy, and some mild green diarrhea, but no blood. 7.MSK: Normocephalic/Atraumatic, Extremities w/o deformity or ttp No cyanosis or clubbing, Normal movement of all extremities 8.Skin: Warm, Dry. No rashes or lesions. 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 Sensation grossly intact, no focal neurologic deficits. 10.Psych: (AAO) x3. Appropriate mood and affect Course Vital Signs Vital signs: Vital Signs Temperature 36.5 C 11/23/24 00:47 Pulse 96 H 11/23/24 00:47 Respiratory Rate 18 11/23/24 00:47 Blood Pressure 116/96 H 11/23/24 00:47 Temperature 36.5 C 11/23/24 00:47 Pulse 74 11/23/24 02:33 Respiratory Rate 18 11/23/24 02:33 Blood Pressure 129/79 11/23/24 02:33 Blood Pressure Mean 95 11/23/24 02:33 Blood Pressure Position Sitting 11/23/24 00:47 Pulse Oximetry 96 11/23/24 02:33 Oxygen Delivery Method Room Air 11/23/24 02:33 Oxygen Flow Rate 0 11/23/24 02:33 Lab/Test Results Lab/Test Results: Laboratory Tests Range/Units 11/23/24 11/23/24 01:05 01:24 WBC (4.4-10.8) 10^3/uL 6.25 RBC (3.93-5.22) 10^6/uL 6.10 H Hgb (11.2-15.7) g/dL 16.6 H Hct (36.0-46.0) % 50.0 H MCV (80-95) fL 82 MCH (27.0-33.0) pg 27.2 MCHC (32.0-36.0) % 33.2 RDW (11.7-14.6) % 14.0 Plt Count (130-400) 10^3/uL 309 MPV (8.0-11.0) fL 9.8 Immature Gran % % 0.3 Neutrophils % % 57.2 Lymphocytes % % 27.0 Monocytes % % 11.4 Eosinophils % % 3.5 Basophils % % 0.6 Nucleated RBC % (0.0-0.3) % 0.0 Absolute Neutrophils (1.2-6.7) 10^3/uL 3.57 Absolute Lymphocytes (1.2-3.4) 10^3/uL 1.69 Absolute Monocytes (0.1-0.8) 10^3/uL 0.71 Absolute Eosinophils (0.0-0.7) 10^3/uL 0.22 Absolute Basophils (0.0-0.2) 10^3/uL 0.04 RBC Morphology Normal Sodium (136-145) mmol/L 134 L Potassium (3.5-5.1) mmol/L 4.4 Chloride (98-107) mmol/L 99 Carbon Dioxide (21.0-32.0) mmol/L 20.0 L Anion Gap (3-11) mmol/L 15.0 H BUN (7-18) mg/dL 27 H Creatinine (0.55-1.02) mg/dL 1.2 H Est GFR (CKD-EPI 2020) (mL/min/1.73m2) 52.47 Glucose (74-106) mg/dL 114 H Calcium (8.5-10.1) mg/dL 9.5 Total Bilirubin (0.2-1.0) mg/dL 2.8 H AST (15-37) U/L 31 ALT (14-59) U/L 24 Alkaline Phosphatase (46-116) U/L 117 H Total Protein (6.4-8.2) g/dL 8.8 H Albumin (3.4-5.0) g/dL 4.1 Lipase (<78) U/L 39 Stl C.difficile Tox PCR (Negative) Negative Medical Decision Making 59-year-old female with a past medical history of Crohn's disease, currently on Humira, ileostomy, renal insufficiency, previous ovarian cysts, presents today for evaluation of diarrhea. Patient states that for the last 4 days she has been having mild diarrhea. She denies any recent foreign travel, recent antibiotics, recent drinking out of streams or [place] or [place]. She states that she will occasionally get diarrhea with her Crohn's, but this diarrhea has been notably nonbloody. She denies any significant abdominal pain or vomiting. She has been drinking fluids for rehydration, and also trying to take pasty like foods to help bulk her stools, however despite this she still has green watery diarrhea. She presents today because she feels that she is getting dehydrated, and wants to hydrate prior to having a problem. She denies any other complaints at this time. She is taking Lomotil which she has prescribed already. Exam demonstrates well-appearing female, dry mucous membranes, mild tachycardia, blood pressure 116/96. Ostomy site is pink and moist. Diarrhea is green and slightly watery. No blood. With no abdominal pain or tenderness I do not see an indication for imaging at this time. No evidence to suggest significant Crohn's flare. He is taking her Lomotil already. We will rehydrate with IV fluids, check for electrolyte abnormalities, monitor closely and reassess. 3:06 AM no white count, hemoglobin high at 16.6, likely secondary to hemoconcentration. Electrolytes stable, anion gap 15, BUN 27 creatinine 1.2 suggestive of dehydration. Bilirubin is high at 2.8, however she has no right upper quadrant tenderness, and on review of prior labs she seems to have had elevated bilirubin levels in the past. Transaminases are normal. Lipase normal. C. difficile testing is negative. Will send the rest of her stool for culture. Otherwise patient looks well, she feels well, and feels much better after IV fluids. Patient will be discharged home, recommend continued Lomotil. No indication for antibiotics at this time with no bloody diarrhea fever chills or other red flag risk factors. Discussed red flags for which to return. Recommend continued bulking agents and Lomotil. I have extensively reviewed the treatment plan and discharge instructions with the patient. I have addressed all patient concerns at this time. The patient was made aware of what symptoms to monitor for that would warrant a return to the emergency department. Discussed the plan with the patient, they demonstrate verbal understanding and agreement with our assessment and plan at this time. The documentation in this chart was dictated using [employer] dictation software. Please excuse any dictation errors. 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 (Acute) Both hands Tendinitis of both wrists (Acute) Nephrolithiasis (Chronic) Metatarsalgia of both feet (Acute) per 05/11/21 [facility] note Arthritis associated with inflammatory bowel disease (Acute) Per 01/27/21 [facility] Rheumatology note Primary osteoarthritis involving multiple joints (Acute) Per 01/27/21 [facility] Rheumatology note High risk medication use (Acute) Per 01/27/21 [facility] Rheumatology note Vitamin B deficiency (Chronic 11/05/12) Psoriasis of scalp (Chronic 06/10/16) 06/10/16 ov at [facility] with Dr Julisa Marie(Dermatology), 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 Ovarian cyst, right (Chronic 09/15/15) MRI 06/2015 [facility] Idiopathic scoliosis (Chronic 11/07/12) Crohn's disease with complication (Chronic) [facility] GI Diagnosed 1988, rectovaginal fistulas Fistula repair early , seton placement S/p total proctocolectomy 1995 Arthropathy associated with Crohn's dz 11/15/18 ileoscopy [facility] (Dr Baltazar) Endoscopy planned for November 2022 Calcium oxalate renal stones (Chronic) Followed by [facility] Urology S/p PCNL (R) kidney 03/03/2016 [facility] S/p PCNL (R) kidney 08/2020 [facility] 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 had destruction of filaform wart with cryotherapy on central upper abdomen. 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
[2024-11-24 22:04] LABS: Campylobacter PCR Negative (Negative); Shiga Toxin PCR Negative (Negative); Shigella/Enteroinvasive Ecoli Negative (Negative)
== END 2024-11-23 04:31 | disposition home or self-care (01) ==
PROVIDERS: Emergency Provider Student in an Organized Health Care Education/Training Program; PCP Family Medicine
DX: E86.0 Dehydration (principal); R19.7 Diarrhea, unspecified
CPT/HCPCS: 80053; 83690; 87015; 87269; 87272; 87505; 96360; 96361; 99284; 85025

== ENCOUNTER 2024-11-24 17:14 | Observation (INO) | payer MEDICARE, SELFPAY ==
[2024-11-24] VITALS (30 sets, daily range): BP systolic 85–136; BP diastolic 54–94; PULSE 57–118; RESP 13–24; TEMP 36.6–36.7; O2SAT 93–100
[2024-11-24] MEDS: Lactated Ringers 1,000 ML 1000 ML IV ×2 (18:10→19:40)
[2024-11-24 18:16] LABS: Abs Immature Grans 0.01 10^3/uL (0.0-0.06); HCT 47.9 % (36.0-46.0); HGB 15.5 g/dL (11.2-15.7); Immature Grans % 0.1 %; MCH 26.7 pg (27.0-33.0); MCHC 32.4 % (32.0-36.0); MCV 83 fL (80-95); MPV 9.8 fL (8.0-11.0); Platelet Count 297 10^3/uL (130-400); RBC 5.80 10^6/uL (3.93-5.22); RDW 14.0 % (11.7-14.6); RDW-SD 41.8 fL; WBC 6.68 10^3/uL (4.4-10.8)
[2024-11-24 18:30] LABS: ALT 25 U/L (14-59); AST 23 U/L (15-37); Albumin 4.0 g/dL (3.4-5.0); Alkaline Phosphatase 112 U/L (46-116); Anion Gap 13.5 mmol/L (3-11); BUN 36 mg/dL (7-18); Bilirubin, Total 2.2 mg/dL (0.2-1.0); CO2 22.5 mmol/L (21.0-32.0); Calcium 9.1 mg/dL (8.5-10.1); Chloride 101 mmol/L (98-107); Estimated GFR 34.55 (mL/min/1.73m2); Glucose 113 mg/dL (74-106); Lipase 35 U/L (<78); Magnesium 2.0 mg/dL (1.8-2.4); Potassium 4.1 mmol/L (3.5-5.1); Sodium 137 mmol/L (136-145); Total Protein 8.2 g/dL (6.4-8.2)
[2024-11-24 20:32] LABS: ESR 19 mm/hr (0-30)
[2024-11-24 20:43] LABS: C-Reactive Protein < 0.50 mg/dL (<or=0.5)
--- NOTE | 2024-11-24 21:17 | W.ED.GENAD ---
Discharge Plan Discharge Details Chief Complaint: Recheck Primary Care Provider: Irving Barkley ED Provider: Sue Shelton Home Meds and New Rx's Prescriptions: No Action ibuprofen 100 mg/5 mL suspension 600 mg PO TID PRN (Reason: inflammation) Qty: 473 1RF ergocalciferol (vitamin D2) 1,250 mcg (50,000 unit) capsule PO Patient Comments: TAKE ONE CAPSULE BY MOUTH THREE TIMES A WEEK fluocinonide 0.05 % gel 1 applic topical BID Qty: 15 0RF Rx Instructions: Apply to affected area on R arm, on the lesion only cyanocobalamin (vitamin B-12) 1,000 mcg/mL solution 1,000 mcg IM .[id number] Qty: 1 [place] [facility] [place] adalimumab 40 mg/0.4 mL pen injector kit 40 mg subcut QWEEK Rx Instructions: 04/18/22 Increase to weekly dosing fluocinolone 0.01 % solution 1 applic topical BID PRN Rx Instructions: Apply to the Q-tip and then apply to the affected areas of the ears and scalp twice daily for up to two weeks clobetasol 0.05 % solution See Rx Instructions topical .COMPLEX Rx Instructions: Apply to scaly spots on scalp twice daily for 2 weeks then on weekends as needed topically; acetaminophen 500 mg/15 mL liquid 1,000 mg PO Q8H PRN (Reason: fever or pain) Qty: 237 5RF HPI General Date/Time Provider Initiated Documentation: 11/24/24 17:37. HPI Narrative: 59-year-old female with dehydration, lightheadedness, and persistent copious diarrhea. History of Crohn's colitis with ileostomy. No sick contacts or history of Giardia. Administered fluids yesterday, struggling to maintain hydration due to high output. No blood in stool, abdominal pain, fever, or chills. Related Data Home Medications ?Medication ?Instructions ?Recorded ?Confirmed cyanocobalamin (vitamin B-12) 1,000 mcg IM .[id number] #1 vial 04/08/21 11/24/24 1,000 mcg/mL injection solution adalimumab 40 mg/0.4 mL 40 mg subcut QWEEK 04/27/22 11/24/24 subcutaneous pen kit fluocinolone 0.01 % topical 1 applic topical BID PRN 06/01/22 11/24/24 solution ibuprofen 100 mg/5 mL oral 600 mg (30 mL) PO TID PRN 07/29/22 11/24/24 suspension inflammation #473 mL clobetasol 0.05 % scalp solution See Rx Instructions topical 12/14/22 11/24/24 .COMPLEX ergocalciferol (vitamin D2) 1,250 PO 08/28/24 11/05/24 mcg (50,000 unit) capsule acetaminophen 500 mg/15 mL oral 1,000 mg (30 mL) PO Q8H PRN fever 09/03/24 11/24/24 liquid or pain #237 mL fluocinonide 0.05 % topical gel 1 applic topical BID #15 grams 09/27/24 11/24/24 Previous Rx's ?Medication ?Instructions ?Recorded ibuprofen 100 mg/5 mL oral 600 mg (30 mL) PO TID PRN 07/29/22 suspension inflammation #473 mL acetaminophen 500 mg/15 mL oral 1,000 mg (30 mL) PO Q8H PRN fever 09/03/24 liquid or pain #237 mL fluocinonide 0.05 % topical gel 1 applic topical BID #15 grams 09/27/24 Allergies Allergy/AdvReac Type Severity Reaction Status Date / Time Sulfa (Sulfonamide AdvReac Mild MOUTH SORES Verified 11/24/24 17:24 Antibiotics) vancomycin AdvReac Mild red Verified 11/24/24 17:24 neck/back and mild uticaria General Stated Complaint: Recheck JOSE: 3 Exam Narrative Exam Narrative: General Appearance: Afebrile, nontoxic. Vital signs: Orthostatic BP 85/55 on arrival, now 128/65. HEENT: Within normal limits. Respiratory: Within normal limits. Gastrointestinal: Abdomen nontender, liquid stool in ostomy bag. No rebound or guarding. Skin: Warm and dry, no rash. Neurological: Normal. Course Vital Signs Vital signs: Vital Signs Temperature 36.7 C 11/24/24 17:18 Pulse 100 H 11/24/24 17:18 Respiratory Rate 18 11/24/24 17:18 Blood Pressure 85/61 L 11/24/24 17:18 Pulse Oximetry 96 11/24/24 17:18 Temperature 36.7 C 11/24/24 17:18 Temperature Source Oral 11/24/24 17:18 Pulse 100 H 11/24/24 17:18 Respiratory Rate 18 11/24/24 17:18 Blood Pressure 85/61 L 11/24/24 17:18 Blood Pressure Position Sitting 11/24/24 17:18 Pulse Oximetry 96 11/24/24 17:18 Oxygen Delivery Method Room Air 11/24/24 17:18 Oxygen Flow Rate 0 11/24/24 17:18 Pain Level 0 11/24/24 17:18 Lab/Test Results Lab/Test Results: Laboratory Tests Range/Units 11/24/24 18:05 WBC (4.4-10.8) 10^3/uL 6.68 RBC (3.93-5.22) 10^6/uL 5.80 H Hgb (11.2-15.7) g/dL 15.5 Hct (36.0-46.0) % 47.9 H MCV (80-95) fL 83 MCH (27.0-33.0) pg 26.7 L MCHC (32.0-36.0) % 32.4 RDW (11.7-14.6) % 14.0 Plt Count (130-400) 10^3/uL 297 MPV (8.0-11.0) fL 9.8 Immature Gran % % 0.1 Neutrophils % % 63.5 Lymphocytes % % 26.8 Monocytes % % 7.9 Eosinophils % % 1.3 Basophils % % 0.4 Nucleated RBC % (0.0-0.3) % 0.0 Absolute Neutrophils (1.2-6.7) 10^3/uL 4.23 Absolute Lymphocytes (1.2-3.4) 10^3/uL 1.79 Absolute Monocytes (0.1-0.8) 10^3/uL 0.53 Absolute Eosinophils (0.0-0.7) 10^3/uL 0.09 Absolute Basophils (0.0-0.2) 10^3/uL 0.03 ESR (0-30) mm/hr 19 Sodium (136-145) mmol/L 137 Potassium (3.5-5.1) mmol/L 4.1 Chloride (98-107) mmol/L 101 Carbon Dioxide (21.0-32.0) mmol/L 22.5 Anion Gap (3-11) mmol/L 13.5 H BUN (7-18) mg/dL 36 H Creatinine (0.55-1.02) mg/dL 1.7 H Est GFR (CKD-EPI 2020) (mL/min/1.73m2) 34.55 Glucose (74-106) mg/dL 113 H Calcium (8.5-10.1) mg/dL 9.1 Magnesium (1.8-2.4) mg/dL 2.0 Total Bilirubin (0.2-1.0) mg/dL 2.2 H AST (15-37) U/L 23 ALT (14-59) U/L 25 Alkaline Phosphatase (46-116) U/L 112 C-Reactive Protein (<or=0.5) mg/dL < 0.50 Total Protein (6.4-8.2) g/dL 8.2 Albumin (3.4-5.0) g/dL 4.0 Lipase (<78) U/L 35 Medical Decision Making CBC: No significant acute abnormality. CMP: BUN 39, creatinine 1.7, gap 13. Increased from yesterday's creatinine 1.2, BUN 23. Electrolytes stable. C. difficile negative. Initial Assessment: 59-year-old female with dehydration, lightheadedness, persistent diarrhea, history of Crohn's colitis with ileostomy. Differential Diagnosis: - Dehydration: Lightheadedness, persistent diarrhea, increased BUN and creatinine. Admission for further management. - Crohn's flare: Unlikely per GI specialist, no antibiotics or steroids. ED Course: - Orthostatic BP 85/55 on arrival, improved to 128/65 after fluids. - CMP: BUN 39, creatinine 1.7, gap 13. - C. difficile negative. - Discussed with hospitalist, agreed to admission. Final Assessment: Dehydration and lightheadedness, persistent diarrhea. Despite fluids and Banana bag yesterday, BUN and creatinine increased. Electrolytes stable. GI specialist does not suspect Crohn's flare. No antibiotics or steroids. Hospitalist agreed to admission. Clinical Impression: - Dehydration - Crohn's colitis with ileostomy Disposition: - Admission for further management of dehydration. MDM Components Evaluation: - Number of Differential Diagnoses or Management Options: Dehydration, Crohn's flare. - Amount and Complexity of Data Reviewed: Orthostatic BP, CMP, C. difficile test, consultation with GI specialist, discussion with hospitalist. - Risk of Complication and Morbidity or Mortality: Increased risk due to persistent diarrhea and dehydration, elevated BUN and creatinine. 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 (Acute) Both hands Tendinitis of both wrists (Acute) Nephrolithiasis (Chronic) Metatarsalgia of both feet (Acute) [place] [facility] [place] Arthritis associated with inflammatory bowel disease (Acute) Per 01/27/21 [facility] [place] Primary osteoarthritis involving multiple joints (Acute) Per 01/27/21 [facility] [place] High risk medication use (Acute) Per 01/27/21 [facility] [place] Vitamin B deficiency (Chronic 11/05/12) Psoriasis of scalp (Chronic 06/10/16) 06/10/16 [place] [facility] [place] Julisa Marie(Dermatology), 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 Ovarian cyst, right (Chronic 09/15/15) [place] 06/[place] [facility] [place] Idiopathic scoliosis (Chronic 11/07/12) Crohn's disease with complication (Chronic) [facility] [place], rectovaginal fistulas Fistula repair early , seton placement S/p total proctocolectomy 1995 Arthropathy associated with Crohn's dz 11/15/18 [place]oscopy [facility] [place] Endoscopy planned for November 2022 Calcium oxalate renal stones (Chronic) [place]ed [place] [facility] [place] S/p PCNL (R) kidney 03/03/2016 [facility] [place] PCNL (R) [place] 08/2020 [facility] [place] 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) Chrohn's related, [facility] [place] Jim[place] Medical History (Updated 11/23/24 @ 03:09 by Jose Newman DO) Small bowel obstruction due to adhesions Calcium oxalate renal stones Surgical History (Updated 09/24/21 @ 14:58 by Rosana Tony RN, RN) S/P endoscopy Ileoscopy 09/22/21 [facility] [place] 1995 small bowel resection,abscess drainage,ileostomy translocation 11/05/07 s/p IR drainage of small abscess/ileostomy translocation 10/17/07 cryotherapy (09/07/16) [place] [facility] [place] had destruction of filaform wart with cryotherapy on central upper abdomen. R renal percutaneous nephorstomy with stent (03/03/16) [facility] [place] History Maternal Grandmother Breast cancer Social History Smoking/Tobacco Use Status: Never Smoking risk assessment performed?: Yes Alcohol Intake: never Drug use: Never Substance use type: does not use Housing: house Number of Children: 0 current occupation: disabled What is your relationship status?: don't know Panel score (0-1 are the most socially isolated patients): 0 What type of physical activity do you participate in: other Details: physically active daily Seatbelt use: always 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
[2024-11-24] MEDS: Lactated Ringers 1,000 ML 250 ML IV (21:21)
--- NOTE | 2024-11-24 21:21 | W.PM.HP.N ---
Date of service: 11/24/24 Time of Service: 21:21 Assessment and Plan Assessment and plan (1) High risk medication use: Status: Acute Assessment and plan: Noted. Per the discussion with ED physician, no recommendation for steroid use at this time. (2) Crohn's disease with complication: Status: Chronic Assessment and plan: Continue with IV hydration and recheck labs in the a.m. Considering the patient's multiple episodes of diarrhea we will will order banana bag to replete any electrolyte loss. (3) Renal insufficiency: Status: Chronic Assessment and plan: As above. (4) Diarrhea: Status: Acute Assessment and plan: Exact etiology is unknown to but does not appear to be infectious. Awaiting labs but will continue with supportive care. dvtp with lovenox History of Present Illness History of Present Illness Chief Complaint: diarrhea Narrative: This is a 59-year-old female with a known history of Crohn's disease who had a ileostomy in the early as well as her revision in 1999 presents with 5 days of diarrhea. Patient has been taking antidiarrheals without success. She was actually seen yesterday in the ED and sent home. Continue to have symptoms and presented again today. On admission she was orthostatic and did have worsening renal function. I was called to evaluate the patient and recommended admission as she continued to have diarrhea and worsening renal function. Patient denies any nausea vomiting or abdominal pain. Patient denies any blood in her stool. C. difficile check yesterday was negative multiple other GI infectious causes are still pending including Salmonella and Shigella. Patient does follow-up with [facility] GI. The ED attending did reach out to [facility] who just recommended supportive care only. 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 (Acute) Both hands Tendinitis of both wrists (Acute) Nephrolithiasis (Chronic) Metatarsalgia of both feet (Acute) per [place]/11/21 [facility] [place] Arthritis associated with inflammatory bowel disease (Acute) Per 01/27/21 [facility] [place] Primary osteoarthritis involving multiple joints (Acute) Per 01/27/21 [facility] [place] High risk medication use (Acute) Per 01/27/21 [facility] [place] Vitamin B deficiency (Chronic 11/05/12) Psoriasis of scalp (Chronic 06/10/16) 06/10/16 ov [place] [facility] [place] Julisa Marie(Dermatology), 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 Ovarian cyst, right (Chronic 09/15/15) MRI 06/2015 [facility] [place] Idiopathic scoliosis (Chronic 11/07/12) Crohn's disease with complication (Chronic) [facility] [place] 1988, rectovaginal fistulas Fistula repair early , seton placement S/p total proctocolectomy 1995 Arthropathy associated with Crohn's dz 11/15/18 ileoscopy [facility] [place] Baltazar) Endoscopy planned for November 2022 Calcium oxalate renal stones (Chronic) Followed by [facility] [place] S/p PCNL (R) kidney 03/03/2016 [facility] [place]/p PCNL (R) kidney 08/2020 [facility] [place] 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 had destruction of filaform wart with cryotherapy on central upper abdomen. 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 Do you feel safe at home: Yes Meds Allergies and Home Medications Allergies Allergy/AdvReac Type Severity Reaction Status Date / Time Sulfa (Sulfonamide AdvReac Mild MOUTH SORES Verified 11/24/24 17:24 Antibiotics) vancomycin AdvReac Mild red Verified 11/24/24 17:24 neck/back and mild uticaria Home Medications ?Medication ?Instructions ?Recorded ?Confirmed ?Type cyanocobalamin (vitamin B-12) 1,000 mcg IM .[id number] #1 vial 04/08/21 11/24/24 History 1,000 mcg/mL injection solution adalimumab 40 mg/0.4 mL 40 mg subcut QWEEK 04/27/22 11/24/24 History subcutaneous pen kit fluocinolone 0.01 % topical 1 applic topical BID PRN 06/01/22 11/24/24 History solution ibuprofen 100 mg/5 mL oral 600 mg (30 mL) PO TID PRN 07/29/22 11/24/24 Rx suspension inflammation #473 mL clobetasol 0.05 % scalp solution See Rx Instructions topical 12/14/22 11/24/24 History .COMPLEX ergocalciferol (vitamin D2) 1,250 PO 08/28/24 11/05/24 History mcg (50,000 unit) capsule acetaminophen 500 mg/15 mL oral 1,000 mg (30 mL) PO Q8H PRN fever 09/03/24 11/24/24 Rx liquid or pain #237 mL fluocinonide 0.05 % topical gel 1 applic topical BID #15 grams 09/27/24 11/24/24 Rx Exam Narrative Exam Narrative: HEENT-normocephalic atraumatic mucous membranes moist Neck-no lymphadenopathy no JVD no thyromegaly Cardiovascular-regular rate rhythm no murmur rubs or gallops Lungs-clear to auscultation bilaterally with good air exchange Abdomen-soft nontender nondistended ileostomy appliance is in place. Appears clean dry and intact Extremities-no sinus clubbing or edema. Does have normal cap refill Neurologic-cranial nerves II through XII intact as tested reflexes upper extremity normal as tested Psych-alert and oriented x 3 no apparent distress Results Labs 11/24/24 18:05 11/24/24 18:05 Labs: Laboratory Results - last 24 hr 11/24/24 18:05 WBC 6.68 RBC 5.80 H Hgb 15.5 Hct 47.9 H MCV 83 MCH 26.7 L MCHC 32.4 RDW 14.0 Plt Count 297 MPV 9.8 Immature Gran % 0.1 Neutrophils % 63.5 Lymphocytes % 26.8 Monocytes % 7.9 Eosinophils % 1.3 Basophils % 0.4 Nucleated RBC % 0.0 Absolute Neutrophils 4.23 Absolute Lymphocytes 1.79 Absolute Monocytes 0.53 Absolute Eosinophils 0.09 Absolute Basophils 0.03 ESR 19 Sodium 137 Potassium 4.1 Chloride 101 Carbon Dioxide 22.5 Anion Gap 13.5 H BUN 36 H Creatinine 1.7 H Est GFR (CKD-EPI 2020) 34.55 Glucose 113 H Calcium 9.1 Magnesium 2.0 Total Bilirubin 2.2 H AST 23 ALT 25 Alkaline Phosphatase 112 C-Reactive Protein < 0.50 Total Protein 8.2 Albumin 4.0 Lipase 35 Last Vital Signs Temp 36.7 C 11/24/24 17:18 Pulse 76 11/24/24 21:18 Resp 21 11/24/24 19:30 BP 119/92 H 11/24/24 21:18 Pulse Ox 98 11/24/24 21:18 Time Spent Time spent with Patient: <40 minutes Time was spent: preparing to see the patient(eg.review tests), obtaining and/or reviewing separately otained hiistory, ordering medications,tests, procedures, referring, communicating with other health director career services, indepentently interpreting results, counseling the patient and care coordination
--- NOTE | 2024-11-24 21:50 | W.PC.ACHO ---
Registration Status: REG ER Primary Language: Preferred Language: Turkmen ED Information & Data Chief Complaint Recheck 11/24/24 21:19 Triage Note patient state she was here 11/24/24 17:18 yesterday due to having frequent stools, state she has a history of Crohn's and ileostomy in place. State she is still feeling dehydrated. Medical / Surgical History (Last Updated 07/15/22 @ 16:20 by Galina Boo RN) Small bowel obstruction due to adhesions Calcium oxalate renal stones (Last Updated 09/24/21 @ 14:58 by Rsoana Tony RN, RN) S/P endoscopy total proctocolectomy 1995 small bowel resection,abscess drainage,ileostomy translocation 11/05/07 s/p IR drainage of small abscess/ileostomy translocation cryotherapy (09/07/16) R renal percutaneous nephorstomy with stent (03/03/16) Most Recent Vital Signs Temperature 36.7 C 11/24/24 17:18 Temperature Source Oral 11/24/24 17:18 Pulse 76 11/24/24 21:18 Pulse 74 11/24/24 19:30 Respiratory Rate 21 11/24/24 19:30 Blood Pressure 119/92 H 11/24/24 21:18 Blood Pressure Mean 101 11/24/24 21:18 Blood Pressure Position Sitting 11/24/24 17:18 Pulse Oximetry 98 11/24/24 21:18 Oxygen Delivery Method Room Air 11/24/24 17:18 Oxygen Flow Rate 0 11/24/24 17:18 Pain Level 0 11/24/24 17:18 Allergies Sulfa (Sulfonamide Antibiotics) Adverse Reaction (Mild, Verified 11/24/24 17:24) MOUTH SORES vancomycin Adverse Reaction (Mild, Verified 11/24/24 17:24) red neck/back and mild uticaria IV IV Catheter Type [Right Saline Lock Antecubital] IV Catheter Gauge [Right 20 Antecubital] Diet Orders Category Date Time Status Regular/Normal [DIET] Nutrition 11/25/24 Breakfast Ordered Diagnostics 11/24/24 Range/Units 18:05 WBC 6.68 (4.4-10.8) 10^3/uL RBC 5.80 H (3.93-5.22) 10^6/uL Hgb 15.5 (11.2-15.7) g/dL Hct 47.9 H (36.0-46.0) % MCV 83 (80-95) fL MCH 26.7 L (27.0-33.0) pg MCHC 32.4 (32.0-36.0) % RDW 14.0 (11.7-14.6) % Plt Count 297 (130-400) 10^3/uL MPV 9.8 (8.0-11.0) fL Immature Gran % 0.1 % Neutrophils % 63.5 % Lymphocytes % 26.8 % Monocytes % 7.9 % Eosinophils % 1.3 % Basophils % 0.4 % Nucleated RBC % 0.0 (0.0-0.3) % Absolute Neutrophils 4.23 (1.2-6.7) 10^3/uL Absolute Lymphocytes 1.79 (1.2-3.4) 10^3/uL Absolute Monocytes 0.53 (0.1-0.8) 10^3/uL Absolute Eosinophils 0.09 (0.0-0.7) 10^3/uL Absolute Basophils 0.03 (0.0-0.2) 10^3/uL ESR 19 (0-30) mm/hr Sodium 137 (136-145) mmol/L Potassium 4.1 (3.5-5.1) mmol/L Chloride 101 (98-107) mmol/L Carbon Dioxide 22.5 (21.0-32.0) mmol/L Anion Gap 13.5 H (3-11) mmol/L BUN 36 H (7-18) mg/dL Creatinine 1.7 H (0.55-1.02) mg/dL Est GFR (CKD-EPI 2020) 34.55 (mL/min/1.73m2) Glucose 113 H (74-106) mg/dL Calcium 9.1 (8.5-10.1) mg/dL Magnesium 2.0 (1.8-2.4) mg/dL Total Bilirubin 2.2 H (0.2-1.0) mg/dL AST 23 (15-37) U/L ALT 25 (14-59) U/L Alkaline Phosphatase 112 (46-116) U/L C-Reactive Protein < 0.50 (<or=0.5) mg/dL Total Protein 8.2 (6.4-8.2) g/dL Albumin 4.0 (3.4-5.0) g/dL Lipase 35 (<78) U/L Intake and Output - 24 Hour Total 11/24/24 17:14 thru 11/24/24 17:18 Weight 58.967 kg Falls Risk Assessment History of Falls No History 11/24/24 18:09 Contributing Factors No Factors 11/24/24 18:09 Ambulatory Aids Independent 11/24/24 18:09 Tubes/Lines None 11/24/24 18:09 Gait Evaluation No gait disturbance 11/24/24 18:09 Cognition No cognitive impairment 11/24/24 18:09 Fall Total Score 0 11/24/24 18:09 Level of Risk Standard/Low Risk 11/24/24 18:09 Problems (Last Updated 07/15/22 @ 16:20 by Galina Boo RN) Diarrhea (Acute) Renal insufficiency (Chronic) High risk medication use (Acute) Crohn's disease with complication (Chronic) v v v v v v v v v Sending and/or Receiving Nurses: Please use comment section below to note any information pertinent to the patient hand-off not included above. Information / Comments: 59 yo F admit through the ED to med/surg rm 216, for PERLA and dehydration. Hx of crohns and ileostomy. Given 3 L LR in the ED. Normal vitals att. Report received from:Kevin CHOU, [id number]
[2024-11-24] MEDS: Enoxaparin 40 MG/0.4 ML SYR SC (23:27)
[2024-11-25] MEDS: MAGNESIUM SULFATE 8.12 MEQ, MULTIVITAMIN 10 ML, THIAMINE 100 MG, FOLIC ACID 1 MG in Nor... 168.867 MG IV (00:56)
[2024-11-25 07:36] VITALS: BP 104/68; PULSE 65; RESP 16; TEMP 36.3; O2SAT 100
[2024-11-25] MEDS: Lactated Ringers 1,000 ML 250 ML IV ×3 (07:46→13:43)
--- NOTE | 2024-11-25 09:16 | INITIAL_ITS ---
Date of service: 11/25/24 Time of Service: 09:16 Care Management Initial Assmt Initial Assessment Reason for Hospitalization: dehydration, diarrhea, orthostatic hypotension Functional Status/Living Situation Patient Presentation: Natalee presented to the ED last evening with c/o dehydration, lightheadedness and persistent copious diarrhea. She does have a history of Chron's disease. She had been in the ED the previous day with the same complaints. She was encouraged to take probiotics, f/u with her PCP, and was sent home. Today Natalee was sitting up in the bed, picking at her lunch, when CM met with her. She was very pleasant, and easy to talk with. She said that she is feeling a little better, and wishes she could go home. She knows that she is not quite ready yet, however. She is still receiving IVF at 250cc/h. Natalee lives alone, but feels well supported by her sister and nieces, and also her parents. She denied any community needs. Natalee is not working, she is disabled do to her Chron's disease. Town of Residence: [facility] Resides with: Alone Significant Other/Family: Local (sister, Migdalia, and parents Rhett and Kellie. ) Natural Supports: family Employment Status: Disabled Instrumental Activities of Daily Living (ADLs): Independent Activities/Hobbies/SocialSupport: Natalee likes to read, craft, knit and garden. Medications Medication Management: No Issues/Barriers identified Advance Directives Advance Directives: Do you have an Advance Directive: Y , 12:26 AD On File at [facility]: Y 07/27/12, 16:29 Date Asked 11/24/24 11/24/24, 17:15 AD Date Reviewed 11/24/24 Today, 08:33 COLST On File at [facility] COLST Date Scanned Code Status Resuscitation Status Full Code Insurance Coverage/Financial Issues Insurance: Medicare Part A & B Care Team Visit Care Team Role Provider Type Marcy Velez NP MD [facility] STAFF PHYSICIAN Irving Barkley DO Primary Care Provider OSTEOPATHIC DOCTOR COREEN Cooper Emergency Provider PHYSICIANS MALARIOLOGIST Kelvin Duarte MD Admit Provider [facility] STAFF PHYSICIAN Attending Provider Other: GI and dermatology at [facility] Discharge Potential Discharge Needs: PCP F/U Appt and Other (GI specialist at [facility]) Anticipated Barriers to Discharge: None Identified Patient/Family Education Needs: Review discharge instructions, discuss Ask Me Three Transportation: Private vehicle Plan: Anticipate that Natalee will discharge home with no new services. She will f/u with her PCP and her GI specialist, and continue per her plan of care. CM will continue to follow. Social Determinants of Health Screening Will the Patient Participate in the Screening?: Declined to provide PFSH All Active Problems (Updated 11/24/24 @ 21:29 by Kelvin Duarte MD) Diarrhea (Acute) Diarrhea (Acute) Acute dehydration (Acute) Atypical absence epilepsy (Acute) Pharyngitis (Acute) Menopausal and female climacteric states (Acute) 04/03/23 [employer]ICAL [employer]Y TECH[employer]IC[employer] [facility] Renal insufficiency (Chronic) Seborrheic dermatitis of scalp (Acute) Sore throat (Acute) Viral upper respiratory illness (Acute) Sinus pressure (Acute) Facial pain, acute (Acute) Iron deficiency anemia due to chronic blood loss (Acute) 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 (Acute) Both hands Tendinitis of both wrists (Acute) Nephrolithiasis (Chronic) Metatarsalgia of both feet (Acute) per 05/11/21 [facility] note Arthritis associated with inflammatory bowel disease (Acute) Per 01/27/21 [facility] Rheumatology note Primary osteoarthritis involving multiple joints (Acute) Per 01/27/21 [facility] Rheumatology note High risk medication use (Acute) Per 01/27/21 [facility] Rheumatology note Vitamin B deficiency (Chronic 11/05/12) Psoriasis of scalp (Chronic 06/10/16) 06/10/16 ov at [facility] with Dr Julisa Marie(Dermatology), 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 Ovarian cyst, right (Chronic 09/15/15) MRI 06/2015 [facility] Idiopathic scoliosis (Chronic 11/07/12) Crohn's disease with complication (Chronic) [facility] GI Diagnosed 1988, rectovaginal fistulas Fistula repair early , seton placement S/p total proctocolectomy 1995 Arthropathy associated with Crohn's dz 11/15/18 ileoscopy [facility] (Dr Baltazar) Endoscopy planned for November 2022 Calcium oxalate renal stones (Chronic) Followed by [facility] Urology S/p PCNL (R) kidney 03/03/2016 [facility] S/p PCNL (R) kidney 08/2020 [facility] 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 had destruction of filaform wart with cryotherapy on central upper abdomen. R renal percutaneous nephorstomy with stent (03/03/16) [facility] Family History Maternal Grandmother Breast cancer Social History Smoking/Tobacco Use Status: Never Smoking risk assessment performed?: Yes Alcohol Intake: never Drug use: Never Substance use type: does not use Housing: house Number of Children: 0 current occupation: disabled What is your relationship status?: don't know Panel score (0-1 are the most socially isolated patients): 0 What type of physical activity do you participate in: other Details: physically active daily Seatbelt use: always Drive intox or ride w/intox 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
[2024-11-25 11:05] VITALS: BP 115/71; PULSE 67; RESP 17; TEMP 36.4; O2SAT 99
[2024-11-25 14:31] LABS: Anion Gap 6.5 mmol/L (3-11); BUN 17 mg/dL (7-18); CO2 27.5 mmol/L (21.0-32.0); Calcium 7.9 mg/dL (8.5-10.1); Chloride 108 mmol/L (98-107); Estimated GFR 85.35 (mL/min/1.73m2); Glucose 93 mg/dL (74-106); Potassium 3.7 mmol/L (3.5-5.1); Sodium 142 mmol/L (136-145)
[2024-11-25 14:32] VITALS: BP 122/75; BP 134/82; BP 134/89; PULSE 65; PULSE 68; PULSE 74; RESP 17; TEMP 36.4; O2SAT 99
--- NOTE | 2024-11-25 14:39 | W.PM.DS.N ---
Date of service: 11/25/24 Time of Service: 14:40 DS: Diagnosis Discharge Diagnosis (1) High risk medication use: Status: Acute (2) Crohn's disease with complication: Status: Chronic (3) Renal insufficiency: Status: Chronic (4) Diarrhea: Status: Acute Discharge Plan Disposition Patient Disposition: Home Condition: Improving Discharge Details Reason For Visit: Dehydration Admit Date/Time: 11/24/24 21:16 Admit Provider: Kelvin Duarte Attending Provider: Kelvin Duarte Primary Care Provider: Irving Barkley [facility] Hospital Course: The patient is a 59-year-old female with a longstanding history of Crohn?s disease, having undergone multiple surgeries, including a total proctocolectomy and ileostomy. She presented to the emergency department with complaints of ongoing diarrhea, dehydration, and lightheadedness. The diarrhea has been persistent for 5 days and has not responded to [id number] antidiarrheal medications. ` Upon arrival, she was noted to have orthostatic hypotension, with an initial blood pressure of 85/55, which improved to 128/65 after the administration of intravenous fluids. Labs showed mild dehydration, an elevated BUN of 36, creatinine of 1.7, and an anion gap of 13. Her electrolytes remained stable, and her C. difficile test was negative. There were no signs of infection, and a review of her stool showed no blood. Given the patient's persistent symptoms and worsening renal function, a decision was made to admit her for further monitoring and management. A consultation with a GI specialist was obtained, who did not suspect an active Crohn's flare and recommended supportive care only. The patient was continued on IV hydration, with close monitoring of renal function and electrolytes. Throughout the admission, the patient remained afebrile and nontoxic, with normal neurological examination findings. There was no abdominal tenderness, and her ileostomy appliance appeared intact and clean. After receiving supportive care, including hydration, the patient?s condition improved, and she was stable for discharge. She was advised to continue her current medications, including B12 injections, adalimumab, and other maintenance therapies as per her established regimen. Follow-up with her furniture sales consultant and primary care provider is recommended. Final Diagnosis: Dehydration due to high-output ileostomy and diarrhea. Crohn?s disease, stable. Renal insufficiency, stable at discharge. Disposition: The patient is stable for discharge and will follow up with her GI specialist as planned. She was educated on signs of dehydration and instructed to monitor fluid intake and output closely. Discharge medications remain unchanged, and the patient was instructed to resume her usual medications, including ibuprofen for inflammation, vitamin D2, and fluocinonide for dermatologic concerns. Recommendations for Follow Up Recommended tests to be ordered by follow up provider: BMP in 5 days (order placed) Home Meds and New Rx's Prescriptions: No Action ibuprofen 100 mg/5 mL suspension 600 mg PO TID PRN (Reason: inflammation) Qty: 473 1RF ergocalciferol (vitamin D2) 1,250 mcg (50,000 unit) capsule PO Patient Comments: TAKE ONE CAPSULE BY MOUTH THREE TIMES A WEEK fluocinonide 0.05 % gel 1 applic topical BID Qty: 15 0RF Rx Instructions: Apply to affected area on R arm, on the lesion only cyanocobalamin (vitamin B-12) 1,000 mcg/mL solution 1,000 mcg IM .[id number] Qty: 1 Patient Comments: [facility] [place] adalimumab 40 mg/0.4 mL pen injector kit 40 mg subcut QWEEK Rx Instructions: 04/18/22 Increase to weekly dosing fluocinolone 0.01 % solution 1 applic topical BID PRN Rx Instructions: Apply to the Q-tip and then apply to the affected areas of the ears and scalp twice daily for up to two weeks clobetasol 0.05 % solution See Rx Instructions topical .COMPLEX Rx Instructions: Apply to scaly spots on scalp twice daily for 2 weeks then on weekends as needed topically; acetaminophen 500 mg/15 mL liquid 1,000 mg PO Q8H PRN (Reason: fever or pain) Qty: 237 5RF Discharge Instructions Instructions: Crohn disease in adults Additional Instructions: 1. Fluid Management: Hydration: It is essential to maintain proper hydration. Drink at least 8-10 glasses of water or electrolyte solution daily. Avoid sugary or caffeinated drinks as they can worsen dehydration. Monitor Fluid Loss: Keep track of your output and aim to drink enough fluids to compensate for any losses. Signs of Dehydration: If you notice signs of dehydration such as dry mouth, dizziness, dark urine, or infrequent urination, please increase fluid intake and contact your healthcare provider. Have your electrolytes and kidney function checked in 5 days (order placed). 2. Diet & Nutrition: Balanced Diet: Try to eat a well-balanced diet, with a focus on nutrient-dense foods that are easy to digest, such as lean proteins, well-cooked vegetables, and simple grains. Avoid Trigger Foods: Some foods can irritate your bowel, such as spicy foods, high-fat foods, or dairy. Pay attention to how your body responds to different foods and avoid those that worsen diarrhea or cause discomfort. Frequent, Small Meals: Eating smaller meals more frequently throughout the day may help with digestion and prevent overloading your system. 3. Medications: Adalimumab: Continue your prescribed medication as directed. Make sure you stay on track with your next injection and monitor for any side effects. B12 Injections: Ensure you continue with your scheduled B12 injections as directed by your doctor. Pain Relief: If you experience discomfort or mild pain, you can take [id number] pain relievers like acetaminophen (Tylenol) as needed. Continue Current Medications: Continue all other medications as prescribed before your hospitalization, unless otherwise directed. 4. Monitoring for Symptoms: Diarrhea/Loose Stools: While it?s expected to have some diarrhea given your condition, if you experience a sudden increase in stool output, blood in your stool, or severe abdominal pain, please contact your doctor right away. Renal Function: Keep an eye on your urine output, and notify your doctor if you notice changes such as reduced urination or any pain while urinating. 5. Activity & Rest: Rest: Allow yourself time to rest as your body recovers. Avoid strenuous physical activity until you feel fully recovered. Light Exercise: Once you're feeling better, you can gradually resume light activities, but avoid heavy lifting or excessive physical strain. 6. Follow-Up Care: GI Specialist: Schedule a follow-up appointment with your furniture sales consultant in the next 1-2 weeks to review your Crohn?s disease management and to monitor for any changes. Primary Care Provider: Continue to follow up with your primary care provider for routine monitoring of kidney function and overall health. Contact Information: If you experience any new or worsening symptoms, or if you have any concerns, please call your healthcare provider or visit the nearest emergency department. 7. When to Seek Immediate Medical Attention: Severe Abdominal Pain Persistent Vomiting or Inability to Keep Fluids Down Blood in Stools or Stool That Appears Black/Tarry Fever > 101?F (38.3?C) Severe Shortness of Breath or Chest Pain If you have any further questions or concerns, please do not hesitate to reach out to your healthcare provider. Stand Alone Forms: Nursing Discharge Form Referrals: Irving Barkley DO [Primary Care Provider, Medicine] Referral Note: Routine follow-up is recommended within 1-2 weeks of discharge to ensure proper recovery and continuity of care. Recommend BMP in 5 days (ordered) Activity:: Activity as Tolerated Equipment/Supplies:: No Equipment Needed Diet:: As Tolerated Discharge Orders Discharge Orders: Discharge Order (Routine); Ordered 11/25/24 Ordered By: Marcy Velez Other Ambulatory Orders: Basic Metabolic Panel (Routine) Timeframe: 5 Days Facility: [facility] - Location: Laboratory Outpatient - [facility] Ordered By: Marcy Velez Discharge Data Discharge Date/Time-TO BE ENTERED AT DEPARTURE: 11/25/24 15:27 DS: Summary Time Spent with Patient providing and/or coordinating discharge services: Greater than 30 minutes Status at Discharge Functional status at discharge: independent ambulation Overall status at discharge: patient is back to baseline Mental Status: mental status grossly normal Speech and Movement: speech and movement normal Mood: congruent mood Affect: normal affect Exam Narrative Exam Narrative: HEENT: Normocephalic, atraumatic. Mucous membranes are moist. Neck: No lymphadenopathy, no jugular venous distention, no thyromegaly. Cardiovascular: Regular rate and rhythm. No murmurs, rubs, or gallops. Lungs: Clear to auscultation bilaterally with good air exchange, no signs of distress. Abdomen: Soft, non-tender, non-distended. Ileostomy appliance is in place, appears clean, dry, and intact. Extremities: No sinus or clubbing. No edema. Normal capillary refill. Neurologic: Cranial nerves II through XII intact as tested. Reflexes in the upper extremities are normal as tested. Psychiatric: Alert and oriented x3. No apparent distress. Psych Mental Status: mental status grossly normal Speech and Movement: speech and movement normal Mood: congruent mood Affect: normal affect DS: Data Vitals/I&O Vitals and I&O: Vital Signs Temperature 36.4 C L 11/25/24 14:32 Temperature Source Temporal Artery Scan 11/25/24 14:32 Pulse 74 11/25/24 14:32 Pulse Rhythm Regular 11/24/24 22:30 Pulse 74 11/24/24 19:30 Respiratory Rate 17 11/25/24 14:32 Respiratory Effort Normal 11/24/24 22:30 Respiratory Depth Normal 11/24/24 22:30 Respiratory Pattern Normal 11/24/24 22:30 Blood Pressure 122/75 11/25/24 14:32 Blood Pressure Mean 90 11/25/24 14:32 Blood Pressure Position Sitting 11/24/24 17:18 Pulse Oximetry 99 11/25/24 14:32 Oxygen Delivery Method Room Air 11/25/24 14:32 Oxygen Flow Rate 0 11/25/24 14:32 Pain Level 0 11/25/24 14:32 Comment 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 11/25/24 05:32 Intake & Output 11/24/24 11/25/24 11/25/24 23:59 11:59 23:59 Intake Total 5027.367 / 5910.700 883.333 / 5910.700 Output Total 175 / 175 1550 / 2600 1050 / 2600 Balance -175 / -175 3477.367 / 3310.700 -166.667 / 3310.700 Weight 56.4 kg 56.926 kg Intake: IV 4627.367 / 5510.700 883.333 / 5510.700 Oral 400 / 400 Output: Urine 50 / 50 900 / 1350 450 / 1350 Stool 125 / 125 650 / 1250 600 / 1250 Other: Urine Color Yellow Yellow Yellow Urine Appearance Clear Clear Clear Urine Odor Normal None Stool Size Small Moderate Stool Characteristics Liquid Liquid Liquid Green Brown Brown Green Green Data Completed and Pending Labs on day of discharge: Labs from last 24 hours 11/25/24 11/25/24 11/24/24 13:55 00:30 18:05 WBC 6.68 RBC 5.80 H Hgb 15.5 Hct 47.9 H MCV 83 MCH 26.7 L MCHC 32.4 RDW 14.0 Plt Count 297 MPV 9.8 Immature Gran % 0.1 Neutrophils % 63.5 Lymphocytes % 26.8 Monocytes % 7.9 Eosinophils % 1.3 Basophils % 0.4 Nucleated RBC % 0.0 Absolute Neutrophils 4.23 Absolute Lymphocytes 1.79 Absolute Monocytes 0.53 Absolute Eosinophils 0.09 Absolute Basophils 0.03 ESR 19 Sodium 142 137 Potassium 3.7 4.1 Chloride 108 H 101 Carbon Dioxide 27.5 22.5 Anion Gap 6.5 13.5 H BUN 17 36 H Creatinine 0.8 1.7 H Est GFR (CKD-EPI 2020) 85.35 34.55 Glucose 93 113 H Calcium 7.9 L 9.1 Magnesium 2.0 Total Bilirubin 2.2 H AST 23 ALT 25 Alkaline Phosphatase 112 C-Reactive Protein < 0.50 Total Protein 8.2 Albumin 4.0 Lipase 35 Stool Calprotectin Pending [facility] All Active Problems (Updated 11/24/24 @ 21:29 by Kelvin Duarte MD) Diarrhea (Acute) Diarrhea (Acute) Acute dehydration (Acute) Atypical absence epilepsy (Acute) Pharyngitis (Acute) Menopausal and female climacteric states (Acute) 04/03/23 [employer] [facility] Renal insufficiency (Chronic) Seborrheic dermatitis of scalp (Acute) Sore throat (Acute) Viral upper respiratory illness (Acute) Sinus pressure (Acute) Facial pain, acute (Acute) Iron deficiency anemia due to chronic blood loss (Acute) 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 (Acute) Both hands Tendinitis of both wrists (Acute) Nephrolithiasis (Chronic) Metatarsalgia of both feet (Acute) per 05/11/21 [facility] [place] Arthritis associated with inflammatory bowel disease (Acute) Per 01/27/21 [facility] Rheumatology note Primary osteoarthritis involving multiple joints (Acute) Per 01/27/21 [facility] Rheumatology note High risk medication use (Acute) Per 01/27/21 [facility] Rheumatology note Vitamin B deficiency (Chronic 11/05/12) Psoriasis of scalp (Chronic 06/10/16) 06/10/16 ov at [facility] with Dr Julisa Marie(Dermatology), 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 Ovarian cyst, right (Chronic 09/15/15) MRI 06/2015 [facility] Idiopathic scoliosis (Chronic 11/07/12) Crohn's disease with complication (Chronic) [facility] GI Diagnosed 1988, rectovaginal fistulas Fistula repair early , seton placement S/p total proctocolectomy 1995 Arthropathy associated with Crohn's dz 11/15/18 ileoscopy [facility] (Dr Baltazar) Endoscopy planned for November 2022 Calcium oxalate renal stones (Chronic) Followed by [facility] Urology S/p PCNL (R) kidney 03/03/2016 [facility] S/p PCNL (R) kidney 08/2020 [facility] 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 had destruction of filaform wart with cryotherapy on central upper abdomen. R renal percutaneous nephorstomy with stent (03/03/16) [facility] Family History Maternal Grandmother Breast cancer Social History Smoking/Tobacco Use Status: Never Smoking risk assessment performed?: Yes Alcohol Intake: never Drug use: Never Substance use type: does not use Housing: house Number of Children: 0 current occupation: disabled What is your relationship status?: don't know Panel score (0-1 are the most socially isolated patients): 0 What type of physical activity do you participate in: other Details: physically active daily Seatbelt use: always Drive intox or ride w/intox tow motor 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
--- NOTE | 2024-11-25 15:04 | PDOC.CMDIS ---
Date of service: 11/25/24 Time of Service: 15:05 LACE Index Scoring Tool Questions: Length of Stay (in days): 1 Was the patient admitted via the E.D.?: Yes E.D. Visits: 2 Answers: Total Score: 6 Risk of Readmission: Low Risk Care Management Discharge Plan Reason for Hospitalization: dehydration, diarrhea Discharge Plan: Natalee is discharged home this afternoon with no new services. She will f/u with her PCP and her GI specialist and continue per her plan of care. Natalee will drive herself home. Patient/Family Education Needs: Review of discharge instructions, activity, limitations and discuss Ask me 3.
== END 2024-11-25 15:27 | disposition home or self-care (01) ==
LOC: ER 17:29 → MS 22:20
PROVIDERS: Admitting Provider Hospitalist; Emergency Provider Physician Assistant; PCP Family Medicine; Responsible Provider Nurse Practitioner Family; Visit Provider Hospitalist
DX: R19.7 Diarrhea, unspecified (principal); K94.19 Other complications of enterostomy; E86.0 Dehydration; I95.1 Orthostatic hypotension; K50.919 Crohn's disease, unspecified, with unspecified complications; N18.9 Chronic kidney disease, unspecified; Z79.899 Other long term (current) drug therapy; G40.A09 Absence epileptic syndrome, not intractable, without status epilepticus; D50.0 Iron deficiency anemia secondary to blood loss (chronic); M15.9 Polyosteoarthritis, unspecified; Z90.49 Acquired absence of other specified parts of digestive tract; M41.20 Other idiopathic scoliosis, site unspecified
CPT/HCPCS: 00123; 80048; 80053; 83690; 85652; 96361; 96365; 96366; 96372; 99285; J1650; 83735; 83993; 85025; 86140; 99222; 99239; J3411; J3475

== ENCOUNTER 2024-11-28 11:29 | Emergency (ER) | payer MEDICARE, SELFPAY ==
[2024-11-28 11:33] VITALS: BP 167/102; PULSE 83; RESP 18; TEMP 36.8; O2SAT 96
--- NOTE | 2024-11-28 12:00 | ED.GENADUL_ITS ---
Discharge Plan Disposition Patient Disposition: Home Condition: Stable Discharge Details Clinical Impression: Migraine syndrome Primary Care Provider: Irving Barkley ED Provider: Jose Guerrero Home Meds and New Rx's Prescriptions: Continued ibuprofen 100 mg/5 mL suspension 600 mg PO TID PRN (Reason: inflammation) Qty: 473 1RF ergocalciferol (vitamin D2) 1,250 mcg (50,000 unit) capsule PO Patient Comments: TAKE ONE CAPSULE BY MOUTH THREE TIMES A WEEK fluocinonide 0.05 % gel 1 applic topical BID Qty: 15 0RF Rx Instructions: Apply to affected area on R arm, on the lesion only cyanocobalamin (vitamin B-12) 1,000 mcg/mL solution 1,000 mcg IM .[id number] Qty: 1 Patient Comments: [facility] [place] Urology adalimumab 40 mg/0.4 mL pen injector kit 40 mg subcut QWEEK Rx Instructions: 04/18/22 Increase to weekly dosing fluocinolone 0.01 % solution 1 applic topical BID PRN Rx Instructions: Apply to the Q-tip and then apply to the affected areas of the ears and scalp twice daily for up to two weeks clobetasol 0.05 % solution See Rx Instructions topical .COMPLEX Rx Instructions: Apply to scaly spots on scalp twice daily for 2 weeks then on weekends as needed topically; acetaminophen 500 mg/15 mL liquid 1,000 mg PO Q8H PRN (Reason: fever or pain) Qty: 237 5RF Discharge Instructions Instructions: Headache, Adult ED Additional Instructions: You were seen in the emergency department for your likely status migrainosus for headache since Monday, you have been through a lot of stress with your hospital admission lately I think is the source of your tension type headache pattern. Your labs are reassuring, there is no elevation of your inflammatory markers no signs of severe infection, your electrolytes are all within normal limits. Your CT head is negative for any vascular or stroke pathology, no intracranial bleeding. You improved with migraine medications, and for your migraines please take 1000 mg of Tylenol every 6 hours like clockwork, take ibuprofen only if tolerated with clearance from your primary care provider for short-term dosings or to seek a prescription for Toradol, I recommend you seek an outpatient MRI for complex migraine workup and return for any severe increase in headache symptoms, failure to improve, any neurologic abnormalities. Referrals: Irving Barklye DO [Primary Care Provider, Medicine] HPI General Date/Time Provider Initiated Documentation: 11/28/24 11:59 . HPI Narrative: 59 year-old female presents to ED today by POV/ambulating with a chief complaint of headache, ongoing for 3 days, rubber-band like around the head. Patient had recently been admitted for other issues- dehydration. Quality described as severe headache, not quite floaters but possible aura in vision, no radiation to numbness/tingling, fever, neck stiffness, chest pain, vertigo, near syncope, nausea/vomiting, chest pain, dysuria. Severity is described as severe. Palliating factors include had seen PCP who recommended Tylenol and caffeine. Provoking factors include nothing specific. Events leading up to the incident/Associated Symptoms: Patient denies altered mentation from this. Patient not anticoagulated. Related Data Home Medications ?Medication ?Instructions ?Recorded ?Confirmed cyanocobalamin (vitamin B-12) 1,000 mcg IM .[id number] #1 vial 04/08/21 11/28/24 1,000 mcg/mL injection solution adalimumab 40 mg/0.4 mL 40 mg subcut QWEEK 04/27/22 11/28/24 subcutaneous pen kit fluocinolone 0.01 % topical 1 applic topical BID PRN 0 06/01/22 11/28/24 solution ibuprofen 100 mg/5 mL oral 600 mg (30 mL) PO TID PRN 0 07/29/22 11/28/24 suspension inflammation #473 mL clobetasol 0.05 % scalp solution See Rx Instructions t opical 12/14/22 11/28/24 .COMPLEX ergocalciferol (vitamin D2) 1,250 PO 08/28/24 11/27/24 mcg (50,000 unit) capsule acetaminophen 500 mg/15 mL oral 1,000 mg (30 mL) PO Q8 H PRN fever 09/03/24 11/28/24 liquid or pain #237 mL fluocinonide 0.05 % topical gel 1 applic topical BID # 15 grams 09/27/24 11/28/24 Previous Rx's ?Medication ?Instructions ?Recorded ibuprofen 100 mg/5 mL oral 600 mg (30 mL) PO TID PRN 0 07/29/22 suspension inflammation #473 mL acetaminophen 500 mg/15 mL oral 1,000 mg (30 mL) PO Q8 H PRN fever 09/03/24 liquid or pain #237 mL fluocinonide 0.05 % topical gel 1 applic topical BID # 15 grams 09/27/24 Allergies Allergy/AdvReac Type Severity Reaction Status Date / Time Sulfa (Sulfonamide AdvReac Mild MOUTH SORES Verified 11/28/24 11:37 Antibiotics) vancomycin AdvReac Mild red Verified 11/28/24 11:37 neck/back and mild uticaria General Stated Complaint: Headache JOSE: 3 Review of Systems All systems reviewed & are unremarkable except as noted in HPI and below Exam Narrative Exam Narrative: GENERAL APPEARANCE: Well-nourished, non-toxic, awake and alert, atraumatic, no acute distress. SKIN: Warm, pink, dry, intact, without rashes/lesions/ulcerations. HEAD: Normocephalic, atraumatic, normal hair distribution for gender/age. EYES: Normal conjunctiva, no exudates on lids/lashes, pupils PERRLA ENT: Nares patent, no circumoral cyanosis, no facial swelling NECK: Supple, trachea midline, painless cervical ROM. LUNGS/CHEST: Lungs CTA bilaterally, non-labored respirations, normal A/P diameter, symmetrical expansion, no chest wall deformity HEART (CV/PV): Regular rate and rhythm without murmur, no peripheral edema, no JVD. ABDOMEN: Soft, non-distended, no guarding. MSK: Normal ROM, no swelling/deformity to bilateral UEs or LEs, moving all extremities without weakness, no cyanosis, spine midline without tenderness, normal curvature. NEURO: Mental Status AAOx4 - alert to person, place, time, events No facial droop, no forehead involvement, no dysmetria with FNF bilat Motor: No focal weakness - strength 5/5 in bilateral UEs and LEs, proximal and distal, symmetric. Sensory: sensation intact to light touch globally. Gait normal: patient ambulated without ataxia into ED room. PSYCH: euthymic, cooperative, pleasant, appropriate speech Course Vital Signs Vital signs: Vital Signs Temperature 36.8 C 11/28/24 11:33 Pulse 83 11/28/24 11:33 Respiratory Rate 18 11/28/24 11:33 Blood Pressure 167/102 H 11/28/24 11:33 Pulse Oximetry 96 11/28/24 11:33 Temperature 36.8 C 11/28/24 11:33 Temperature Source Oral 11/28/24 11:33 Pulse 83 11/28/24 11:33 Respiratory Rate 18 11/28/24 11:33 Blood Pressure 167/102 H 11/28/24 11:33 Pulse Oximetry 96 11/28/24 11:33 Oxygen Delivery Method Room Air 11/28/24 11:33 Oxygen Flow Rate 0 11/28/24 11:33 Pain Level 1 11/28/24 11:33 Medical Decision Making This dictation utilizes [id number] dictation software and may contain unedited grammatical errors. 59 year-old female presents to ED today by POV/ambulating with a chief complaint of headache, ongoing for 3 days, rubber-band like around the head. Patient had recently been admitted for other issues- dehydration. Quality described as severe headache, not quite floaters but possible aura in vision, no radiation to numbness/tingling, fever, neck stiffness, chest pain, vertigo, near syncope, nausea/vomiting, chest pain, dysuria. Severity is described as severe. Palliating factors include had seen PCP who recommended Tylenol and caffeine. Provoking factors include nothing specific. Events leading up to the inci dent/Associated Symptoms: Patient denies altered mentation from this. Patients' medical history: Dehydration and diarrhea recently that required admission, history of atypical absence epilepsy, nephrolithiasis, osteoarthritis, Crohn's disease. Family and social history: Lives independently, stays active and healthy. Pertinent exam findings / vital signs include neuro intact, no dysmetria, no foc al weakness, no slurred speech, normal gait NIH 0, benign cardiopulmonary status, nontoxic and afebrile. Differential / pathologies of concern include migraine syndrome, stroke, atypical giant cell arteritis, electrolyte abnormality, caffeine withdrawal. Diagnostic studies of: - CTA brain and neck, CBC, CMP, CRP/ESR, lactate, magnesium, UA, magnesium, EKG. - CTA brain and neck shows no acute abnormality - CMP shows no actionable abnormality - CMP shows normal electrolytes - CRP/ESR negative - Lactate negative - UA without any severe derangement, there is a urine culture pending due to 3-5 WBCs on micro - EKG shows sinus bradycardia 57 bpm with P waves followed by narrow complex QRS with normal axis, good R wave progression, no ST changes, no T wave abnormalities Interventions of: - IVF 1 L NS, 1 g IV Tylenol, 15 mg IV Toradol, 5 mg IV Reglan, 25 mg IV Benadryl, 25 mg p.o. sumatriptan, 10 mg IV dexamethasone for trial of relief of status migrainosus-significant symptomatic relief achieved. ED Course/Assessment/Plan: 59-year-old female had a recent stressful go with severe diarrhea and dehydration requiring admission presenting with severe headache, she had been recommended to discontinue caffeine after her dehydration issues and was seen by her PCP who diagnosed her with caffeine withdrawal headache and recommended Tylenol gave her a shot of Toradol and to start caffeine again. She has a normal neurologic exam, CTA was performed and is negative, no major electrolyte or other laboratory anomalies, inflammatory markers negative, I counseled her on likely tension headache from her recent stressful admission and follow-up with outpatient neurology for complex migraine workup, strict return for any neurologic deficits or worsening despite treatment. Findings not consistent with neurologic abnormality, stroke, ICH, infection, meningismus, sepsis, UTI. Disposition of migraine syndrome. Patient verbalized understanding of the plan and return to ED criteria and engaged in shared decision making. Medical Records Medical records reviewed: Yes I reviewed the patient's medical records. Imaging Data Radiologic Study: Attestation: I personally reviewed and interpreted this imaging study as follows: Imaging: CT Scan Radiologist's impression: EXAM: CT BRAIN NECK CTA CLINICAL HISTORY: headache; visual changes; 3 days. TECHNIQUE: Imaging Protocol: Axial CT angiography was performed with multi- slice acquisition and multi-planar and MIP reconstructions. CONTRAST MATERIAL: Intravenous: Omnipaque 350 Contrast volume:70 ml COMPARISON: No exams were available for comparison FINDINGS: CT Head W/O and W contrast: Ventricles and Extra axial spaces: Normal in size and morphology for the patient's age. Hemorrhage: None. Cerebral parenchyma: No evidence of acute infarct or mass. Midline shift: None. Brainstem/Cerebellum: No acute findings.. Calvarium: Normal. Visualized Paranasal sinuses/Mastoids: Clear. Soft Tissues: Unremarkable. Enhancement: Normal. Venous sinuses are patent. CTA Brain W: Internal Carotid Arteries: Right: No aneurysm, occlusion or significant stenosis. Left: No aneurysm, occlusion or significant stenosis. Middle Cerebral Arteries: Right: No aneurysm, occlusion or significant stenosis. Left: No aneurysm, occlusion or significant stenosis. Anterior Cerebral Arteries: Right: No aneurysm, occlusion or significant stenosis. Left: No aneurysm, occlusion or significant stenosis. Posterior cerebral Arteries: Right: No aneurysm, occlusion or significant stenosis. Left: No aneurysm, occlusion or significant stenosis. Vertebral Arteries: Right: No aneurysm, occlusion or significant stenosis. Left: No aneurysm, occlusion or significant stenosis. Basilar Artery: No aneurysm, occlusion or significant stenosis. CTA Neck W: Common Carotid: No atherosclerotic changes. Right: No dissection, occlusion or significant stenosis. Left: No dissection, occlusion or significant stenosis. External Carotid: Right: No dissection, occlusion or significant stenosis. Left: No dissection, occlusion or significant stenosis. Internal Carotid: No atherosclerotic changes. Right: Tortuous distally. No dissection, occlusion or significant stenosis. Left: Tortuous distally. No dissection, occlusion or significant stenosis. Vertebral Artery: Right: No dissection, occlusion or significant stenosis. Left: No dissection, occlusion or significant stenosis. Lung Apices: No acute findings. Bones: No acute abnormality. Soft Tissues: Normal. IMPRESSION: 1. CTA brain: Normal CTA examination of the [place]. 2. Head CT: No acute abnormality. 3. CTA neck: No evidence of occlusion, significant stenosis or dissection. No visible atherosclerotic changes. Lab Data Lab results reviewed: Yes I reviewed the patient's lab results. Labs: 11/28/24 12:31 Urine - Not Specified Urine Culture - Pending Laboratory Tests Range/Units 11/28/24 11/28/24 12:31 12:50 WBC (4.4-10.8) 10^3/uL 5.62 RBC (3.93-5.22) 10^6/uL 5.05 Hgb (11.2-15.7) g/dL 13.9 Hct (36.0-46.0) % 41.9 MCV (80-95) fL 83 MCH (27.0-33.0) pg 27.5 MCHC (32.0-36.0) % 33.2 RDW (11.7-14.6) % 13.7 Plt Count (130-400) 10^3/uL 251 MPV (8.0-11.0) fL 9.9 Immature Gran % % 0.4 Neutrophils % % 64.3 Lymphocytes % % 26.0 Monocytes % % 6.6 Eosinophils % % 2.3 Basophils % % 0.4 Nucleated RBC % (0.0-0.3) % 0.0 Absolute Neutrophils (1.2-6.7) 10^3/uL 3.62 Absolute Lymphocytes (1.2-3.4) 10^3/uL 1.46 Absolute Monocytes (0.1-0.8) 10^3/uL 0.37 Absolute Eosinophils (0.0-0.7) 10^3/uL 0.13 Absolute Basophils (0.0-0.2) 10^3/uL 0.02 ESR (0-30) mm/hr 2 VBG Lactate (<or=2.0) mmol/L 1.0 Sodium (136-145) mmol/L 142 Potassium (3.5-5.1) mmol/L 3.8 Chloride (98-107) mmol/L 107 Carbon Dioxide (21.0-32.0) mmol/L 28.9 Anion Gap (3-11) mmol/L 6.1 BUN (7-18) mg/dL 6 L Creatinine (0.55-1.02) mg/dL 0.9 Est GFR (CKD-EPI 2020) (mL/min/1.73m2) 74.10 Glucose (74-106) mg/dL 88 Calcium (8.5-10.1) mg/dL 8.6 Magnesium (1.8-2.4) mg/dL 1.8 Total Bilirubin (0.2-1.0) mg/dL 1.3 H AST (15-37) U/L 23 ALT (14-59) U/L 27 Alkaline Phosphatase (46-116) U/L 92 Troponin I (<or=51) ng/L 9 C-Reactive Protein (<or=0.5) mg/dL < 0.50 Total Protein (6.4-8.2) g/dL 7.4 Albumin (3.4-5.0) g/dL 3.6 Urine Color (Yellow) Yellow Urine Clarity (Clear) Clear Urine pH (5-8) 5.5 Ur Specific [place] (1.005-1.025) <= 1.005 Urine Protein (Neg-Trace) mg/dL Negative Urine Ketones (Negative) mg/dL Negative Urine Blood (Negative) Small H Urine Nitrite (Negative) Negative Urine Bilirubin (Negative) Negative Urine Urobilinogen (Up to 0.2) mg/dL 0.2 Ur Leukocyte Esterase (Negative) Negative Urine RBC (0-2) HPF 3-5 H Urine WBC (0-5) HPF Negative Ur Epithelial Cells (Negative) HPF Rare Urine Crystals (Negative) HPF Negative Urine Bacteria (Negative) HPF Negative Urine Casts (Negative) LPF Negative Urine Mucus (Negative) Negative Ur Culture Indicated? No Urine Glucose (Negative) mg/dL Negative PFSH All Active Problems (Updated 11/28/24 @ 16:02 by COREEN Salinas) Migraine syndrome (Acute) Headache due to caffeine withdrawal syndrome (Acute) Dehydration (Acute) Cheilitis (Acute) Seborrheic keratoses, inflamed (Acute) Diarrhea (Acute) Diarrhea (Acute) Acute dehydration (Acute) Atypical absence epilepsy (Acute) Pharyngitis (Acute) Menopausal and female climacteric states (Acute) 04/03/23 [facility] Seborrheic dermatitis of scalp (Acute) Sore throat (Acute) Viral upper respiratory illness (Acute) Sinus pressure (Acute) Facial pain, acute (Acute) Iron deficiency anemia due to chronic blood loss (Acute) 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 (Acute) Both hands Tendinitis of both wrists (Acute) Nephrolithiasis (Chronic) Metatarsalgia of both feet (Acute) per 05/11/21 [facility] [place] note Arthritis associated with inflammatory bowel disease (Acute) Per 01/27/21 [facility] [place] Rheumatology note Primary osteoarthritis involving multiple joints (Acute) Per 01/27/21 [facility] [place] Rheumatology note High risk medication use (Acute) Per 01/27/21 [facility] [place] Rheumatology note Vitamin B deficiency (Chronic 11/05/12) 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) Chrohn's related, [facility] [place] Dr Jimenez Medical History (Updated 11/28/24 @ 16:02 by Jose R Guerrero, PA) Crohn's disease with complication [facility] [place] GI Diagnosed 1988, rectovaginal fistulas Fistula repair early , seton placement S/p total proctocolectomy 1995 Arthropathy associated with Crohn's dz 11/15/18 ileoscopy [facility] [place] (Dr Baltazar) Endoscopy planned for November 2022 Small bowel obstruction due to adhesions Calcium oxalate renal stones Surgical History (Updated 09/24/21 @ 14:58 by Rosana Tony RN, RN) S/P endoscopy Ileoscopy 09/22/21 [facility] [place] total proctocolectomy 1995 small bowel resection,abscess drainage,ileostomy translocation 11/05/07 s/p IR drainage of small abscess/ileostomy translocation 10/17/07 cryotherapy (09/07/16) at [facility] [place] derm. had destruction of filaform wart with cryotherapy on central upper abdomen. R renal percutaneous nephorstomy with stent (03/03/16) [facility] [place] Family History Maternal Grandmother Breast cancer Social History Smoking/Tobacco Use Status: Never Smoking risk assessment performed?: Yes Alcohol Intake: never Drug use: Never Substance use type: does not use Housing: house Number of Children: 0 current occupation: disabled What is your relationship status?: don't know Panel score (0-1 are the most socially isolated patients): 0 What type of physical activity do you participate in: other Details: physically active daily Seatbelt use: always Drive intox or ride w/intox transit mixer driver: No Do you feel safe at home: Yes
[2024-11-28 12:03] VITALS: BP 167/102; PULSE 83; RESP 18; TEMP 36.8; O2SAT 96
--- NOTE | 2024-11-28 12:15 | RT.EKG_ITS ---
APPROVED REPORT Exam: Resting ECG Reason for Exam: baseline/screening Patient Location: E HR:57 bpm ECG Measurements Heart Rate 57 AXIS LA 112 P 1 QRSd 82 QRS 26 QT 442 T 39 QTc 429 Conclusion Sinus bradycardia...rate< 60
--- NOTE | 2024-11-28 12:15 | DI.CT_ITS ---
Exam(s) CT BRAIN NECK CTA EXAM: CT BRAIN NECK CTA CLINICAL HISTORY: headache; visual changes; 3 days. TECHNIQUE: Imaging Protocol: Axial CT angiography was performed with multi- slice acquisition and multi-planar and MIP reconstructions. CONTRAST MATERIAL: Intravenous: Omnipaque 350 Contrast volume:70 ml COMPARISON: No exams were available for comparison FINDINGS: CT Head W/O and W contrast: Ventricles and Extra axial spaces: Normal in size and morphology for the patient's age. Hemorrhage: None. Cerebral parenchyma: No evidence of acute infarct or mass. Midline shift: None. Brainstem/Cerebellum: No acute findings.. Calvarium: Normal. Visualized Paranasal sinuses/Mastoids: Clear. Soft Tissues: Unremarkable. Enhancement: Normal. Venous sinuses are patent. CTA Brain W: Internal Carotid Arteries: Right: No aneurysm, occlusion or significant stenosis. Left: No aneurysm, occlusion or significant stenosis. Middle Cerebral Arteries: Right: No aneurysm, occlusion or significant stenosis. Left: No aneurysm, occlusion or significant stenosis. Anterior Cerebral Arteries: Right: No aneurysm, occlusion or significant stenosis. Left: No aneurysm, occlusion or significant stenosis. Posterior cerebral Arteries: Right: No aneurysm, occlusion or significant stenosis. Left: No aneurysm, occlusion or significant stenosis. Vertebral Arteries: Right: No aneurysm, occlusion or significant stenosis. Left: No aneurysm, occlusion or significant stenosis. Basilar Artery: No aneurysm, occlusion or significant stenosis. CTA Neck W: Common Carotid: No atherosclerotic changes. Right: No dissection, occlusion or significant stenosis. Left: No dissection, occlusion or significant stenosis. External Carotid: Right: No dissection, occlusion or significant stenosis. Left: No dissection, occlusion or significant stenosis. Internal Carotid: No atherosclerotic changes. Right: Tortuous distally. No dissection, occlusion or significant stenosis. Left: Tortuous distally. No dissection, occlusion or significant stenosis. Vertebral Artery: Right: No dissection, occlusion or significant stenosis. Left: No dissection, occlusion or significant stenosis. Lung Apices: No acute findings. Bones: No acute abnormality. Soft Tissues: Normal. IMPRESSION: 1. CTA brain: Normal CTA examination of the [place]. 2. Head CT: No acute abnormality. 3. CTA neck: No evidence of occlusion, significant stenosis or dissection. No visible atherosclerotic changes. RADIATION DOSE DELIVERED: Total DLP DATA REPOSITORY: All CT scans at this facility are submitted to the National Radiology Data Registry (NRDR) Dose Index Registry (DIR) with the [employer] (A[employer]). RADIATION OPTIMIZATION: All CT scans at this facility use at least one of these dose optimization techniques: automated exposure control; mA and/or kV adjustment per patient size (includes targeted exams where dose is matched to clinical indication); or iterative reconstruction.
[2024-11-28] MEDS: SUMAtriptan 25 MG TAB PO (12:31)
[2024-11-28 12:50] LABS: Glucose Negative (Negative)
[2024-11-28] MEDS: Normal Saline 1,000 ML 1000 ML IV (12:50)
[2024-11-28 13:00] LABS: Abs Immature Grans 0.02 10^3/uL (0.0-0.06); HCT 41.9 % (36.0-46.0); HGB 13.9 g/dL (11.2-15.7); Immature Grans % 0.4 %; MCH 27.5 pg (27.0-33.0); MCHC 33.2 % (32.0-36.0); MCV 83 fL (80-95); MPV 9.9 fL (8.0-11.0); Platelet Count 251 10^3/uL (130-400); RBC 5.05 10^6/uL (3.93-5.22); RDW 13.7 % (11.7-14.6); RDW-SD 41.3 fL; WBC 5.62 10^3/uL (4.4-10.8)
[2024-11-28] MEDS: Ketorolac 15 MG/ML VIAL IVP (13:00)
[2024-11-28] MEDS: Dexamethasone 10 MG/ML VIAL IVP (13:00)
[2024-11-28] MEDS: diphenhydrAMINE 50 MG/ML VIAL 25 MG IVP (13:00)
[2024-11-28] MEDS: Metoclopramide 10 MG/2 ML VIAL 5 MG IVP (13:01)
[2024-11-28] MEDS: ACETAMINOPHEN 1,000 MG/100 ML BAG 400 MG IVPB (13:01)
[2024-11-28 13:02] LABS: ESR 2 mm/hr (0-30)
[2024-11-28 13:09] LABS: C & S Indicated? No; WBC Negative HPF (0-5)
[2024-11-28 13:34] LABS: ALT 27 U/L (14-59); AST 23 U/L (15-37); Albumin 3.6 g/dL (3.4-5.0); Alkaline Phosphatase 92 U/L (46-116); Anion Gap 6.1 mmol/L (3-11); BUN 6 mg/dL (7-18); Bilirubin, Total 1.3 mg/dL (0.2-1.0); CO2 28.9 mmol/L (21.0-32.0); Calcium 8.6 mg/dL (8.5-10.1); Chloride 107 mmol/L (98-107); Estimated GFR 74.10 (mL/min/1.73m2); Glucose 88 mg/dL (74-106); Potassium 3.8 mmol/L (3.5-5.1); Sodium 142 mmol/L (136-145); Total Protein 7.4 g/dL (6.4-8.2); Troponin I 9 ng/L (<or=51)
[2024-11-28 13:35] LABS: C-Reactive Protein < 0.50 mg/dL (<or=0.5)
[2024-11-28 13:36] LABS: Magnesium 1.8 mg/dL (1.8-2.4)
[2024-11-28] MEDS: Normal Saline - Diluent 50 ML VIAL IJ (14:02)
[2024-11-28] MEDS: Omnipaque 350 MG/ML 500 ML BTL-Imaging package IJ (14:02)
[2024-11-28 14:28] VITALS: BP 148/80; PULSE 62; TEMP 36.2
[2024-11-28 16:10] VITALS: BP 149/86; PULSE 58; RESP 16; O2SAT 99
[2024-11-29 11:46] LABS: Lyme Ab w Rflx to Lyme Confirm Negative (Negative)
[2024-12-01 21:17] LABS: B. miyamotoi PCR Negative (Negative); Babesia divergens/MO-1 Negative (Negative); Ehrlichia muris eauclairensis Negative (Negative)
== END 2024-11-28 16:34 | disposition home or self-care (01) ==
PROVIDERS: Emergency Provider Physician Assistant; PCP Family Medicine
DX: G43.909 Migraine, unspecified, not intractable, without status migrainosus (principal)
CPT/HCPCS: 36415; 70496; 70498; 80053; 85652; 87798; 93005; 96361; 96374; 96375; 99285; 81003; 81015; 83605; 83735; 84484; 85025; 86140; 86618; 87086; 93010; J0131; J1100; J1200; J1885; J2765

== ENCOUNTER 2024-12-12 14:50 | Outpatient (CLI) | payer MEDICARE, SELFPAY ==
[2024-12-13 12:30] LABS: Lyme Ab w Rflx to Lyme Confirm Negative (Negative)
[2024-12-15 17:11] LABS: B. miyamotoi PCR Negative (Negative); Babesia divergens/MO-1 Negative (Negative); Ehrlichia muris eauclairensis Negative (Negative)
== END 2024-12-12 14:51 | disposition home or self-care (01) ==
LOC: LBO 14:51
PROVIDERS: PCP Family Medicine; Visit Provider Family Medicine
DX: R51.9 Headache, unspecified (principal)
CPT/HCPCS: 36415; 87798; 86618

== ENCOUNTER 2024-12-19 01:00 | Outpatient (CLI) | payer MEDICARE, SELFPAY ==
[2024-12-19 12:17] LABS: Abs Immature Grans 0.00 10^3/uL (0.0-0.06); HCT 42.3 % (36.0-46.0); HGB 13.8 g/dL (11.2-15.7); Immature Grans % 0.0 %; MCH 27.5 pg (27.0-33.0); MCHC 32.6 % (32.0-36.0); MCV 84 fL (80-95); MPV 9.7 fL (8.0-11.0); Platelet Count 263 10^3/uL (130-400); RBC 5.01 10^6/uL (3.93-5.22); RDW 14.5 % (11.7-14.6); RDW-SD 44.0 fL; WBC 5.11 10^3/uL (4.4-10.8)
[2024-12-19 12:22] LABS: ESR 4 mm/hr (0-30)
[2024-12-19 12:28] LABS: Glucose Negative (Negative)
[2024-12-19 13:46] LABS: ALT 22 U/L (14-59); AST 20 U/L (15-37); Albumin 3.6 g/dL (3.4-5.0); Alkaline Phosphatase 85 U/L (46-116); Amylase 37 U/L (25-115); Anion Gap 9.7 mmol/L (3-11); BUN 9 mg/dL (7-18); Bilirubin, Total 2.1 mg/dL (0.2-1.0); CO2 26.3 mmol/L (21.0-32.0); Calcium 9.1 mg/dL (8.5-10.1); Chloride 106 mmol/L (98-107); Estimated GFR 85.35 (mL/min/1.73m2); Glucose 88 mg/dL (74-106); Potassium 4.0 mmol/L (3.5-5.1); Sodium 142 mmol/L (136-145); TSH 0.94 uIU/mL (0.36-3.74); Total Protein 7.2 g/dL (6.4-8.2)
[2024-12-19 13:57] LABS: C-Reactive Protein < 0.50 mg/dL (<or=0.5)
[2024-12-19 15:23] LABS: ALT 22 U/L (14-59); AST 21 U/L (15-37); Albumin 3.6 g/dL (3.4-5.0); Alkaline Phosphatase 87 U/L (46-116); Bilirubin, Direct 0.4 mg/dL (0.0-0.2); Bilirubin, Total 2.1 mg/dL (0.2-1.0); Total Protein 7.2 g/dL (6.4-8.2)
== END 2024-12-19 01:01 | disposition home or self-care (01) ==
LOC: LBO 01:00
PROVIDERS: Internal Medicine Gastroenterology; Internal Medicine Rheumatology; PCP Family Medicine; Visit Provider Urology
DX: R35.0 Frequency of micturition (principal); M79.18 Myalgia, other site
CPT/HCPCS: 36415; 80053; 80076; 85652; 81003; 82150; 84443; 85025; 86140; 87086

== ENCOUNTER 2025-01-24 10:22 | Outpatient (CLI) | payer MEDICARE, SELFPAY ==
[2025-01-24 13:27] LABS: ALT 20 U/L (14-59); AST 18 U/L (15-37); Albumin 3.3 g/dL (3.4-5.0); Alkaline Phosphatase 86 U/L (46-116); Bilirubin, Direct 0.3 mg/dL (0.0-0.2); Bilirubin, Total 1.2 mg/dL (0.2-1.0); GGT 17 U/L (5-55); Total Protein 6.4 g/dL (6.4-8.2)
[2025-01-24 22:40] LABS: HBs Antibody, Quant <3.1 mIU/mL (See Note); Hepatitis B Surface Ab Negative (See Note)
[2025-01-24 23:21] LABS: Hep A Total Ab w Rflx IgM Negative (Negative); Hep B Core Antibody Negative (Negative)
[2025-01-24 23:51] LABS: Hepatitis C Ab w Rflx HCV PCR Negative (Negative)
== END 2025-01-24 10:23 | disposition home or self-care (01) ==
LOC: LBO 10:22
PROVIDERS: PCP Family Medicine; Visit Provider Nurse Practitioner Adult Health
DX: K50.919 Crohn's disease, unspecified, with unspecified complications (principal)
CPT/HCPCS: 36415; 80076; 86704; 86706; 86709; 86803; 87340; 82977; 87350